=== PATIENT | male | born 1950 | race Caucasian/White ===

== ENCOUNTER → 2020-06-05 | Outpatient (CLI) | payer MEDICARE, OTHER ==
[2020-06-06 11:06] LABS: ABSOLUTE RETIC # 38 10e9/uL (24-90); RETICULOCYTE % 0.93 % (0.50-2.40)
[2020-06-06 11:17] LABS: BAND NEUTROPHILS 0 %; BASOPHILS % (MANUAL) 1 %; EOSINOPHILS % (MANUAL) 2 %; LYMPHOCYTES % (MANUAL) 67 %; MONOCYTES % (MANUAL) 2 %; NEUTROPHILS % (MANUAL) 28 %
[2020-06-06 11:18] LABS: TARGET CELLS SLIGHT
== END ==
LOC: LABNPT 10:50
PROVIDERS: ATTEND Family Medicine
DX: Z01.89 Encounter for other specified special examinations (principal)
CPT/HCPCS: 85007; 85045

== ENCOUNTER 2023-01-16 11:42 | Inpatient (IN) | payer MEDICARE, OTHER ==
[~2023-01-16] VITALS: Ht 165.1 cm; Wt 83.2 kg
--- NOTE | 2023-01-16 12:29 | PM&R Post Admission Assessment ---
PM&R HP Date of Visit: Jan 16, 2023 Time of Visit: 12:30 History of Present Illness Chief complaint: Severe debility following lumbar stenosis with myelopathy spine surgery HPI: This is a 72-year-old male clinic patient of Dr. Cardenas who presents following an extensive lumbar spine surgery due to lumbar stenosis with myelopathy. Patient has had struggles with this for couple years and has become very debilitated and weak. He remains a very high fall risk. Patient did have significant encephalopathy due to pain medication so we will minimize that. We will work on bowel regimen. Vitals remained stable. He will wear a brace at all times. Past Gxghwzy-Ulcqeh-Zmpdbs Hx Past Med/Social Hx: Reviewed Nursing Past Med/Soc Hx, Reviewed and Corrections made Patient Social History Marrital Status: Employed/Student: retired Alcohol Use: Denies Use Smoking Status: Never a Smoker Past Medical History Surgeries: Orthopedic Gastrointestinal: Gastroesophageal Reflux Musculoskeletal: Degenerate Disk Disease, Arthritis, Chronic Back Pain PM&R Allergy/Meds/Data Review Allergies Coded Allergies: No Allergy Information Available (Unverified , 01/16/23) Home Medications Scheduled Bee Pollen (Bee Pollen), 550 MG PO DAILY, (Reported) Gabapentin (Neurontin), 300 MG PO DAILY, (Reported) Phenytoin Sodium Extended (Phenytoin Sodium Extended), 100 MG PO DAILY, (Reported) Scheduled PRN Cyclobenzaprine HCl (Cyclobenzaprine HCl), 10 MG PO TID PRN for MUSCLE SPASMS, (Reported) Oxycodone HCl (Oxycodone HCl), 5 MG PO Q4H PRN for PAIN-SEVERE (8-10), (Reported) Discontinued Medications Gabapentin (Gralise), 300 MG PO DAILY, (Reported) Discontinued Reason: Duplicate Order Current Medications Current Medications Reviewed Review of Systems Constitutional: see HPI, malaise, weakness EENTM: no symptoms reported Respiratory: no symptoms reported Cardiovascular: no symptoms reported Gastrointestinal: constipation Genitourinary: decreased output Musculoskeletal: back pain Skin: see HPI Psychiatric/Neurological: Depressed All Other Systems Reviewed Negative Unless Noted: Yes Physical Exam Physical Exam Vital Signs Capillary Refill : Height, Weight, BMI Height: '" Weight: lbs. oz. kg; BMI Method: General Appearance: No Apparent Distress, WD/WN, Chronically ill Eyes: Bilateral Eye Normal Inspection, Bilateral Eye PERRL HEENT: PERRL/EOMI, Normal ENT Inspection, Pharynx Normal Neck: Full Range of Motion, Normal Inspection, Non Tender, Supple, Carotid Bruit Respiratory: Chest Non Tender, Lungs Clear, Normal Breath Sounds, No Accessory Muscle Use, No Respiratory Distress Cardiovascular: Regular Rate, Rhythm, No Edema, No Gallop, No JVD, No Murmur, Normal Peripheral Pulses Gastrointestinal: Normal Bowel Sounds, No Organomegaly, No Pulsatile Mass, Non Tender, Soft Back: CVA Tenderness (L), CVA Tenderness (R), Decreased Range of Motion, Muscle Spasm, Vertebral Tenderness Extremity: Normal Capillary Refill, Normal Inspection, Normal Range of Motion, Non Tender, No Calf Tenderness, No Pedal Edema Neurologic/Psychiatric: Alert, Oriented x3, No Motor/Sensory Deficits, associate faculty II- XII Norm as Tested, Abnormal Gait, Depressed Affect, Motor Weakness (Bilateral lower extremities 4/5) Skin: Normal Color, Warm/Dry Lymphatic: No Adenopathy PM&R Medical Assessment & Plan REHAB/MEDICAL ASSESSMENT AND PLAN: REHAB IMPAIRMENT GROUP: Lumbar stenosis with myelopathy ETIOLOGIC DIAGNOSIS: Lumbar stenosis with myelopathy The comorbidities that impact the patients function and/or functional outcome by: severe frail status, fall risk, chronic debility REHAB PLAN: The patient is being admitted to our comprehensive inpatient rehabilitation facility and can tolerate the intensity of service consisting of at least: 180 minutes of therapy a day, 5 out of 7 days a week Rehab treatment will consist of: PT OT will work on aggressive rehab in order to regain function with ambulation and increase ADL's in order to return home The patient/family has a good understanding of our discharge process and will benefit from an interdisciplinary inpatient rehabilitation program. The patient has potential to make improvement and is in need of at least two of the following multidisciplinary therapies including but not limited to physical, occupational, speech, and prosthetics and orthotics. Additionally the patient will need services from respiratory, nutritional services, wound care, psychology, etc. (Customize this to each patient). Given the patients complex condition and risk of further medical complications, rehabilitation services cannot be safely or effectively provided at a lower level of care such as a detention facility. BARRIERS TO DISCHARGE: Fall risk ESTIMATED LOS: 7 days DISPOSITION: Home RELEVANT CHANGES SINCE PREADMISSION SCREENING: I have compared the patients medical and functional status at the time of the preadmission screening and there are: no changes PROGNOSIS: Good REHABILITATION GOALS: 1. PT OT will work on aggressive rehab in order to regain function with ambulation and increase ADL's in order to return home All the above goals were reviewed with the patient and he/she is in agreement. By signing this document, I acknowledge that I have personally performed a full physical examination on this patient within 24 hours of admission to this inpatient rehabilitation facility and have determined the patient to be able to tolerate the above course of treatment at an intensive level for a reasonable period of time. I will be completing a detailed individualized Plan of Care for this patient by day #4 of the patients stay based upon the Preadmission Screen, the Post-Admission Evaluation, and the therapy evaluations. Admission Dx/Comorbidities: (1) Myelopathy concurrent with and due to stenosis of lumbar spine ICD Codes: M48.061 - Spinal stenosis, lumbar region without neurogenic claudication; G99.2 - Myelopathy in diseases classified elsewhere (2) S/P lumbar fusion ICD Codes: Z98.1 - Arthrodesis status Assessment/Plan Assessment and Plan Assess & Plan/Chief Complaint Assessment: Myelopathy from lumbar stenosis s/p extensive lumbar spine surgery Post op ileus Fall risk Neuropathy Post op encephalopathy Plan: PT OT Pain control Minimize pain BETSY Copeland DO Jan 16, 2023 12:29
[2023-01-16] MEDS ORDERED: MELATONIN 3 MG TABLET PO PRN (12:30)
[2023-01-16] MEDS ORDERED: ONDANSETRON 4 MG ORAL DISSOLVE TABLET PO PRN (12:30)
[2023-01-16] MEDS ORDERED: DOCUSATE SODIUM 100 MG CAPSULE PO PRN (12:30)
[2023-01-16] MEDS ORDERED: LOPERAMIDE 2 MG CAPSULE PO PRN (12:30)
[2023-01-16] MEDS ORDERED: CALCIUM CARBONATE 500 MG CHEW TABLET PO PRN (12:30)
[2023-01-16] MEDS ORDERED: guaiFENesin/CODEINE 10ML UDC PO PRN (12:30)
[2023-01-16] MEDS ORDERED: ALPRAZolam 0.25 MG TABLET PO PRN (12:30)
[2023-01-16] MEDS ORDERED: Sodium Phosphate/Sodium Biphosphate ADULT enema PR PRN (12:30)
[2023-01-16] MEDS ORDERED: diphenhydrAMINE 25 MG TABLET PO PRN (12:30)
[2023-01-16 13:30] VITALS: BP 101/57
[2023-01-16] MEDS ORDERED: GABA300C PO (13:31)
[2023-01-16] MEDS ORDERED: PHEN100C11 PO (13:31)
[2023-01-16] MEDS ORDERED: BEE550CA PO (13:31)
[2023-01-16] MEDS ORDERED: OXYC5TAB PO (13:31)
[2023-01-16] MEDS ORDERED: GABA300T24 PO (13:31)
[2023-01-16] MEDS ORDERED: CYCL10TA25 PO (13:31)
[2023-01-16] MEDS: ACETAMINOPHEN 325 MG TABLET PO PRN ×2 (13:35→19:47)
--- NOTE | 2023-01-16 13:41 | Occupational Therapy Eval ---
OT Evaluation-General/PLF Medical Diagnosis Admission Date Jan 16, 2023 at 12:25 Medical Diagnosis: s/p L2-S1 Fusion Onset Date: Jan 14, 2023 Therapy Diagnosis Therapy Diagnosis: decreased ADL status, weakness Precautions Comments Back precautions.10-15 lb lifting restriction. Family reports no shower until drain removed. Referral Physician: Beau Referral Reason: Evaluation/Treatment Medical History Additional Medical History OA, seizure disorder, post op LMP and abdominal pain Current History s/p L2-S1 anterior spinal fusion and lami, bone graft and instrumentation. L2- pelvis with b/l open sacroilliac fusion, TLIF. Social History Home: Single Level Current Living Status: Spouse Entry Into Home: Stairs With Railing Steps Into Home: 4 ADL-Prior Level of Function SCALE: Activities may be completed with or without assistive devices. 0-Jfgkygtjrt-ikckgps completes the activity by him/herself with no assistance from a helper. 5-Set-up or Clean-up Assistance-helper sets up or cleans up; patient completes activity. [place] assists only prior to or following the activity. 4-Supervision or Touching Assistance-helper provides verbal cues and/or touching/steadying and/or contact guard assistance as patient completes activity. Assistance may be provided throughout the activity or intermittently. 3-Partial/Moderate Assistance-helper does LESS THAN HALF the effort. [place] lifts, holds or supports trunk or limbs, but provides less than half the effort. 2-Substantial/Maximal Assistance-helper does MORE THAN HALF the effort. [place] lifts or holds trunk or limbs and provides more than half the effort. 8-Kvehtfeip-extxza does ALL the effort. Patient does none of the effort to complete the activity. Or, the assistance of 2 or more helpers is required for the patient to complete the activity. If activity was not attempted, code reason: 7-Patient Refused. 9-Not Applicable-not attempted and the patient did not perform the activity before the current illness, exacerbation or injury. 10-Not Attempted due to Environmental Limitations-(lack of equipment, weather restraints, etc.). 88-Not Attempted due to Medical Conditions or Safety Concerns. ADL PLOF Comments Pt reports IND with all ADLs and functional mobility, no AD. He has a tub/shower combo and has toilet riser with handles. His daughter has ordered a tub/transfer bench. Pt wears R knee brace during day and night due to knee "popping" Self Care: Independent Functional Cognition: Independent DME/Equipment: Tub/Shower, Toilet/Riser DME/Equipment Comments Pt owns a cane, no walker Leisure Interests: [employer] TV, riding horse, reading OT Current Status Subjective Pt agreeable to OT Tx. Pain Numeric Pain Scale: 4 Location Body Site: Back Mental Status/Objective Patient Orientation: Person, Place, Time, Situation Current Glasses/Contacts: Yes Hearing Aids: Yes Dentures/Partials: No Hand Dominance: Right Upper Extremity ROM RUE shoulder flexion to approx 150 degrees, LUE shoulder flexion to approx 90 degrees. difficulty extending elbow and completing shoulder flexion together. Upper Extremity Coordination WFL Upper Extremity Sensation WFL per pt report Upper Extremity Strength LUE decreased, RUE WFL ADL-Treatment Eating (QC): 6 Oral Hygiene (QC): 6 (seated at sink) Shower/Bathe Self (QC): 3 (Assist BLEs lower legs/feet, and assist buttocks for thoroughness) Upper Body Dressing (QC): 4 (SBA, increased time and effort required due to limitations in LUE) Lower Body Dressing (QC): 2 (Pt required assistance threading LEs, able to manage pant hike.) On/Off Footwear (QC): 2 (Pt able to doff slip on shoes, assist with doff/don socks and donning shoes. ) Toileting Hygiene (QC): 3 (Assist with posterior hygiene for thoroughness) Other Treatments OT evaluation complete. Pt and family provided information about PLOF and home set up. Pt participated in UE screen, states he has had difficulties with LUE for many years. Education provided on ARU expectations and process, as well as back precautions, he verbalized understanding. Post tx, pt in recliner, call light in reach and all needs met. Education OT Patient Education: Correct positioning, Energy conservation, Modified ADL techniques, Progress toward Goal/Update tx plan, Purpose of tx/functional activities, Reviewed precautions, Rehab process Teaching Recipient: Patient Teaching Methods: Discussion Response to Teaching: Verbalize Understanding BIMS CAM BIMS Expression of Ideas and Wants: Without Difficulty Understanding Verbal Content: Understands Brief Interview/Mental Status: Yes IRF JESSI BIMS: IRF JESSI BIMS Response (Comments) Value Repitition of Three Words Three 3 Recalls Socks Yes, No Cue Required 2 Recalls Blue No, Could Not Recall 0 Recalls Bed No, Could Not Recall 0 Year Correct 3 Month Accurate Within 5 Days 2 Day Incorrect or No Answer 0 Total [address] Mental [address] No CAM Mental Status Change/Baseline: 0 Inattention: 0 Disorganized thinkin Altered level of consciousness: 0 OT Residential Goals Housekeeper And Laundry Assistant Goals Time Frame: Feb 07, 2023 Eating (QC): 6 Oral Hygiene (QC): 6 Toileting Hygiene (QC): 6 Shower/Bathe Self (QC): 6 Upper Body Dressing (QC): 6 Lower Body Dressing (QC): 6 On/Off Footwear (QC): 6 Additional Goals: 1-Demonstrate ADL Tasks, 2-Verbalize Understanding, 3- ImproveStrength/Luke 1=Demonstrate adherence to instructed precautions during ADL tasks. 2=Patient will verbalize/demonstrate understanding of assistive devices/modifications for ADL. 3=Patient will improve strength/tolerance for activity to enable patient to perform ADL's. OT Education/Plan Problem List/Assessment Assessment: Decreased Activ Tolerance, Decreased UE Strength, Impaired Funct Balance, Impaired I ADL's, Impaired Self-Care Skills Discharge Recommendations Plan/Recommendations: Continue POC Equpiment Recommendations-D/C: Hip Kit Treatment Plan/Plan of Care Patient would benefit from OT for education, treatment and training to promote independence in ADL's, mobility, safety and/or upper extremity function for ADL's. Plan of Care: ADL Retraining, Functional Mobility, Group Exercise/Act as Ind, UE Funct Exercise/Act Treatment Duration: Feb 07, 2023 Frequency: At least 5 of 7 days/Wk (IRF) Estimated Hrs Per Day: 1.5 hours per day Agreement: Yes Rehab Potential: Good Time Start Time: 13:30 Stop Time: 14:00 DATE: Jan 16, 2023 Total Time Billed (hr/min): 30 Billed Treatment Time MooEDDIE ADDISON OT Jan 16, 2023 13:40
--- NOTE | 2023-01-16 14:34 | Physical Therapy Evaluation ---
PT Evaluation-General Medical Diagnosis Admission Date Jan 16, 2023 at 12:25 Medical Diagnosis: s/p L2-S1 Fusion Onset Date: Jan 14, 2023 Therapy Diagnosis Therapy Diagnosis: Decreased functional mobility Precautions Precautions/Isolations: Fall Prevention, Standard Precautions Back precautions. Family reports no shower until drain removed. Weight Bear Status Right Lower Extremity: Right Full Weight Bearing Left Lower Extremity: Left Full Weight Bearing Referral Physician: Beau Reason for Referral: Evaluation/Treatment Medical History Pertinent Medical History: OA Additional Medical History OA, seizure disorder, post op LMP and abdominal pain Current History s/p L2-S1 anterior spinal fusion and lami, bone graft and instrumentation. L2- pelvis with b/l open sacroilliac fusion, TLIF on 01/14/23; Admitted to ARU on 01/16/23 Reviewed History: Yes Social History Home: Single Level Current Living Status: Spouse Entry Into Home: Stairs With Railing (bilateral ), Level Entry PT Steps Into Home: 4 PT Steps Inside Home: 0 Pt lives in a single-level home with his spouse with 4 steps to enter/exit with B HR. Tub shower, SC, no GBs, tall toilet Prior Prior Level of Function SCALE: Activities may be completed with or without assistive devices. 2-Ittxefdkju-toycpzj completes the activity by him/herself with no assistance from a helper. 5-Set-up or Clean-up Assistance-helper sets up or cleans up; patient completes activity. [place] assists only prior to or following the activity. 4-Supervision or Touching Assistance-helper provides verbal cues and/or touching/steadying and/or contact guard assistance as patient completes activity. Assistance may be provided throughout the activity or intermittently. 3-Partial/Moderate Assistance-helper does LESS THAN HALF the effort. [place] lifts, holds or supports trunk or limbs, but provides less than half the effort. 2-Substantial/Maximal Assistance-helper does MORE THAN HALF the effort. [place] lifts or holds trunk or limbs and provides more than half the effort. 5-Zixsjusun-iwztga does ALL the effort. Patient does none of the effort to complete the activity. Or, the assistance of 2 or more helpers is required for the patient to complete the activity. If activity was not attempted, code reason: 7-Patient Refused. 9-Not Applicable-not attempted and the patient did not perform the activity before the current illness, exacerbation or injury. 10-Not Attempted due to Environmental Limitations-(lack of equipment, weather restraints, etc.). 88-Not Attempted due to Medical Conditions or Safety Concerns. Bed Mobility: 6 Transfers (B,C,W/C): 6 Gait: 6 Stairs: 6 Wheelchair Mobility: 9 Indoor Mobility (Ambulation): Independent Stairs: Independent Prior Devices Use: None At OF pt was Mod I with no AD and driving. Pt reports he has a SPC. PT Evaluation-Current Subjective Pt is agreeable to PT eval and treatment Pain Numeric Pain Scale: 5-Moderate Pain Location: Lower Location Body Site: Back Section J - Health Conditions 1. Rarely or not at all 2. Occasionally 3. Frequently 4. Almost constantly 8. Unable to answer Pain Effect on Sleep: 3 Pain Interference with Therapy: 3 Pain Interference w/Day-to-Day: 3 Pt/Family Goals Safely return home Objective Patient Orientation: Person, Place, Time, Situation Attachments: Drains Back brace on when up; R knee brace on at all times ROM/Strength ROM Upper Extremities See OT eval ROM Lower Extremities WFL Strength Upper Extremities See OT eval Strength Lower Extremities B LE MMT = 4-/5 R knee brace Integumentary/Posture Integumentary See nurses note Bowel Incontinence: No Bladder Incontinence: No Sensory Vision: Wears Glasses Hearing: Hearing Aid/Aides (bilatera ) Hand Dominance: Right Sensation Right Upper Extremit: Intact Sensation Left Upper Extremity: Intact Sensation Right Lower Extremit: Intact Sensation Left Lower Extremity: Intact Transfers Roll Left & Right (QC): 4 (SBA ) Sit to Lying (QC): 4 (SBA ) Lying to Sitting/Side of Bed(Q: 4 (SBA ) Sit to Stand (QC): 4 (CGA ) Chair/Ilg-ae-Jascv Xfer(QC): 4 (CGA ) Toilet Transfer (QC): 4 (CGA ) Car Transfer (QC): 4 (CGA ) Gait Does the Patient Walk?: Yes Mode of Locomotion: Walk Anticipated Mode of Locomotion: Walk Walk 10 feet (QC): 4 (CGA ) Walk 50 ft with 2 Turns(QC): 4 (CGA ) Walk 150 ft (QC): 4 (CGA ) Walking 10ft/uneven surface-QC: 4 (CGA ) Distance: 150ft Gait Assistive Device: FWW Wheelchair Training Does the Pt Use a Wheelchair?: No Wheel 50 ft with 2 turns (QC): 9 Wheel 150 ft (QC): 9 Type of Wheelchair: N/A Stairs #of Steps: 4 1 Step (curb) (QC): 3 (Min A ) 4 Steps (QC): 3 (Min A ) 12 Steps (QC): 9 (4 steps at home ) Walking Assistive Device: Walker Balance Sitting Static: Good Sitting Dynamic: Good Standing Static: Fair Standing Dynamic: Fair Picking up an Object (QC): 4 (CGA with senior microsoft net developer ) Special Test Comments KU standing balance scale = 3/5 (goal = 4+/5) Treatment PT eval completed. Co-tx with OT ([id number]), skills of 2 clinicians required to decrease fall risk while working on functional mobility and ADLs. PT working on bed mobility, functional transfers, w/c mobility, walking, and balance/safety. OT focusing on ADLs, UE positioning, mobility, and safety with back precautions. Pt completed bed mobility with SBA and good carry over with abiding by back precautions. Pt completed functional transfers with CGA/SBA. Pt ambulated 150ft x 2 with the FWW and CGA. Pt completed 4 steps with B HR and Min A. Pt completed sponge bath, dressing, and brushing teeth (see OT note for scores). Pt completed w/c mobility x 250ft with SBA. Pt lying supine in bed with call light in reach, all needs met, and spouse present, at the end of treatment session. Pt and spouse deny any questions or concerns. Assessment/Needs Pt tolerated PT well with good effort Rehab Potential: Good Post Rehab Potential-Barriers: Weakness; endruance Equipment Needs FWW PT Chcf Goals Chcf Goals PT Chcf Goals Time Frame: Jan 30, 2023 Roll Left to Right (QC): 6 (Pt will be Mod I with functional mobility with the FWW. ) Sit to Lying (QC): 6 (Pt will be Mod I with functional mobility with the FWW. ) Lying-Sitting on Side/Bed(QC): 6 (Pt will be Mod I with functional mobility with the FWW. ) Sit to Stand (QC): 6 (Pt will be Mod I with functional mobility with the FWW. ) Chair/Pni-pf-Pbnxs Xfer(QC): 6 (Pt will be Mod I with functional mobility with the FWW. ) Toilet/Commode Transfer (QC): 6 (Pt will be Mod I with functional mobility with the FWW. ) Car Transfer (QC): 6 (Pt will be Mod I with functional mobility with the FWW. ) Does the Patient Walk: Yes Walk 10 feet (QC): 6 (Pt will be Mod I with functional mobility with the FWW. ) Walk 10ft-Uneven Surface(QC): 6 (Pt will be Mod I with functional mobility with the FWW. ) Walk 50ft with 2 Turns (QC): 6 (Pt will be Mod I with functional mobility with the FWW. ) Walk 150 ft (QC): 6 (Pt will be Mod I with functional mobility with the FWW. ) Wheel 50 feet with 2 turns (QC: 6 (Mod I with w/c mobility/will not need ) Type: Manual Wheel 150 feet: 6 (Mod I with w/c mobility/will not need ) Type: Manual 1 Step (curb) (QC): 6 (Pt will be Mod I with functional mobility with the FWW. ) 4 Steps (QC): 6 (Pt will be Mod I with functional mobility with the FWW. ) 12 Steps (QC): 9 (4 steps at home ) Picking up an Object (QC): 6 (Pt will be Mod I with functional mobility with the FWW. ) KU standing balance scale goal = 4+/5 PT Plan Problem List Problem List: Activity Tolerance, Functional Strength, Safety, Balance, Gait, Transfer, Bed Mobility, ROM Treatment/Plan Treatment Plan: Continue Plan of Care Treatment Plan: Bed Mobility, Concurrent Therapy, Education, Functional Activity Luke, Functional Strength, Group Therapy, Gait, Safety, Therapeutic Exercise, Transfers Treatment Duration: Jan 30, 2023 Frequency: At least 5 of 7 days/Wk (IRF) Estimated Hrs Per Day: 1.5 hours per day Patient and/or Family Agrees t: Yes Safety Risks/Education Patient Education: Gait Training, Transfer Techniques, Steps, Reviewed Precautions, Correct Positioning, W/C Management, Safety Issues Teaching Recipient: Patient Teaching Methods: Demonstration, Discussion Response to Teaching: Verbalize Understanding, Return Demonstration, Reinforcement Needed Discharge Recommendations Therapy Discharge Recommendati: Home & Family Equpiment Recommendations-D/C: Front Wheeled Walker, Shower Chair Discharge Status/Home Program Cont per POC Barriers to Progress Weakness, pain Target Placement Home with spouse Time Time In: 1420 Time Out: 1550 DATE: Jan 16, 2023 Total Billed Treatment Time: 90 Total Billed Treatment 90 min total PT eval from [id number] = 30 min EVM co-tx from [id number] for 60 min 1 visit FA x 4 ROSAURA TELLEZ PT Jan 16, 2023 14:34
--- NOTE | 2023-01-16 16:39 | Occupational Ther Daily Note ---
OT Current Status-Daily Note Subjective Pt agreeable to OT/PT cotreatment. ADL-Treatment Therapy Code Descriptions/Definitions Functional [place] Measure: 0=Not Assessed/NA 4=Minimal Assistance 1=Total Assistance 5=Supervision or Setup 2=Maximal Assistance 6=Modified [place] 3=Moderate Assistance 7=Complete IndependenceSCALE: Activities may be completed with or without assistive devices. 7-Xsnmetcwpq-vawqznw completes the activity by him/herself with no assistance from a helper. 5-Set-up or Clean-up Assistance-helper sets up or cleans up; patient completes activity. [place] assists only prior to or following the activity. 4-Supervision or Touching Assistance-helper provides verbal cues and/or touching/steadying and/or contact guard assistance as patient completes activity. Assistance may be provided throughout the activity or intermittently. 3-Partial/Moderate Assistance-helper does LESS THAN HALF the effort. [place] lifts, holds or supports trunk or limbs, but provides less than half the effort. 2-Substantial/Maximal Assistance-helper does MORE THAN HALF the effort. [place] lifts or holds trunk or limbs and provides more than half the effort. 5-Wiyupltnm-wuyevz does ALL the effort. Patient does none of the effort to complete the activity. Or, the assistance of 2 or more helpers is required for the patient to complete the activity. If activity was not attempted, code reason: 7-Patient Refused. 9-Not Applicable-not attempted and the patient did not perform the activity before the current illness, exacerbation or injury. 10-Not Attempted due to Environmental Limitations-(lack of equipment, weather restraints, etc.). 88-Not Attempted due to Medical Conditions or Safety Concerns. Other Treatment OT/PT cotreat due to skill of 2 clinicians required which a vision rehabilitation therapist could not perform in order to coordinate UE/LEs, decrease fall risk, and due to pt's limitations in strength, activity tolerance, mobility and transfers. OT focused on UE placement, ADLs and cues for sequencing and safety, PT focused on LE placement, gross overall movement, transfers and mobility. Pt returned to his r oom using FWW, transferring to seat at sink. Pt completed sponge bath (assist BLEs lower legs/feet and buttocks), LE dressing (Assist threading BLEs, pt able to perform pant hike), UE dressing (SBA), oral care (IND seated). Pt then performed w/c mobility around ARU common area and back to room in order to increase activity tolerance and UE/LE strengthening, 250' SBA. CGA-SBA with tj corrales. Pt used FWW to transfer to bed. Post tx, pt in bed, call light in reach and all needs met. Education OT Patient Education: Correct positioning, Energy conservation, Modified ADL techniques, Progress toward Goal/Update tx plan, Purpose of tx/functional activities, Rehab process Teaching Recipient: Patient Teaching Methods: Discussion Response to Teaching: Verbalize Understanding OT Cut Order Hand Goals [facility] Living Goals Time Frame: Feb 07, 2023 Acute change in mental status: 0 Inattention: 0 Disorganized thinkin Altered level of consciousness: 0 Eating (QC): 6 Oral Hygiene (QC): 6 Toileting Hygiene (QC): 6 Shower/Bathe Self (QC): 6 Upper Body Dressing (QC): 6 Lower Body Dressing (QC): 6 On/Off Footwear (QC): 6 Additional Goals: 1-Demonstrate ADL Tasks, 2-Verbalize Understanding, 3- ImproveStrength/Luke 1=Demonstrate adherence to instructed precautions during ADL tasks. 2=Patient will verbalize/demonstrate understanding of assistive devices/modifications for ADL. 3=Patient will improve strength/tolerance for activity to enable patient to perform ADL's. OT Education/Plan Problem List/Assessment Assessment: Decreased Activ Tolerance, Decreased UE Strength, Impaired Funct Balance, Impaired I ADL's, Impaired Self-Care Skills Discharge Recommendations Plan/Recommendations: Continue POC Treatment Plan/Plan of Care Patient would benefit from OT for education, treatment and training to promote independence in ADL's, mobility, safety and/or upper extremity function for ADL's. Plan of Care: ADL Retraining, Functional Mobility, Group Exercise/Act as Ind, UE Funct Exercise/Act Treatment Duration: Feb 07, 2023 Frequency: At least 5 of 7 days/Wk (IRF) Estimated Hrs Per Day: 1.5 hours per day Agreement: Yes Rehab Potential: Good Time Start Time: 14:50 Stop Time: 15:50 DATE: Jan 16, 2023 Total Time Billed (hr/min): 60 Billed Treatment Time cotreat x60' 1, ADL 3 (45'), FA (15') ISAURA MCDONALD OT Jan 16, 2023 16:38
[2023-01-16] MEDS ORDERED: RX-CYCLOBENZAPRINE 10 MG (FLEXERIL) TAB PPK#3 PO PRN (19:00)
[2023-01-16 19:08] VITALS: BP 116/56
[2023-01-16] MEDS: SENNA W/DOCUSATE TABLET PO SCH (19:47)
[2023-01-16] MEDS: DOCUSATE SODIUM 100 MG CAPSULE PO SCH (19:48)
[2023-01-17] MEDS: oxyCODONE IMMEDIATE RELEASE 5 MG TABLET PO PRN ×3 (01:53→14:36)
[2023-01-17 05:19] LABS: BASOPHILS % (AUTO) 0 % (0-10); EOSINOPHILS # (AUTO) 0.1 10^3/uL (0.0-0.3); EOSINOPHILS % (AUTO) 1 % (0-10); HEMATOCRIT 22 % (40-54); HEMOGLOBIN 7.4 g/dL (13.3-17.7); LYMPHOCYTES # (AUTO) 4.7 10^3/uL (1.0-4.0); LYMPHOCYTES % (AUTO) 47 % (12-44); MEAN CORPUSCULAR HEMOGLOBIN 33 pg (25-34); MEAN CORPUSCULAR HGB CONC 34 g/dL (32-36); MEAN CORPUSCULAR VOLUME 97 fL (80-99); MEAN PLATELET VOLUME 12.4 fL (9.0-12.2); MONOCYTES # (AUTO) 0.6 10^3/uL (0.0-1.0); MONOCYTES % (AUTO) 6 % (0-12); NEUTROPHILS # (AUTO) 4.6 10^3/uL (1.8-7.8); NEUTROPHILS % (AUTO) 46 % (42-75); PLATELET COUNT 78 10^3/uL (130-400)
--- NOTE | 2023-01-17 05:23 | Individualized Plan of Care ---
Individualized Plan of Care Rehab Nursing IPOC Order Admission Date Jan 16, 2023 at 12:25 Current Orders Orders Admission Order(Inpt,Obs,Sdc) (01/16/23 12:25) Vital Signs: Per Unit Policy ( 08,16,00 (01/16/23 12:25) Sampson Hairston 09,21 (01/16/23 12:25) Sequential Compression Device [id number] (01/16/23 12:25) Jewelry Cutter-Inpt Rehab Con (01/16/23 12:25) Rehab Nursing Orders-Ipoc (01/16/23 12:25) Physical Therapy Rehab Orders (01/16/23 12:25) Occupational Therapy Rehab Ord (01/16/23 12:25) Speech Therapy Rehab Orders (01/16/23 12:25) Cbc With Automated Diff (01/17/23 06:00) Comprehensive Metabolic Panel (01/17/23 06:00) Precautions (Aru) (01/16/23 12:25) Weekly Weight WEEK (01/16/23 12:25) Rehab-Intensity Of Therapy (01/16/23 12:25) Initiate Admission Nursing Pro .admission (01/16/23 12:25) Alprazolam Tablet (Alprazolam Tablet) (01/16/23 12:30) Calcium Carbonate Chew Tablet (Calcium C (01/16/23 12:30) Diphenhydramine Tablet (Diphenhydramine (01/16/23 12:30) Docusate Sodium Capsule (Docusate Sodium (01/16/23 21:00) Docusate Sodium Capsule (Docusate Sodium (01/16/23 12:30) Bisacodyl Suppository (Bisacodyl Supposi (01/16/23 12:30) Lactulose Oral Solution (Enulose Oral So (01/16/23 12:30) Na Phos/Na Biphos Adult Enema (Na Phos/N (01/16/23 12:30) Guaifenesin/Codeine Syrup (Guaifenesin/C (01/16/23 12:30) Loperamide Capsule (Loperamide Capsule) (01/16/23 12:30) Melatonin Tablet (Melatonin Tablet) (01/16/23 12:30) Polyethylene Glycol Powder Pkt (Miralax (01/16/23 21:00) Ondansetron Oral Dissolve Tab (Ondanset (01/16/23 12:30) Senna S Tablet (Senokot S Tablet) (01/16/23 21:00) Acetaminophen Tablet (Acetaminophen Ta (01/16/23 12:30) Initiate Admission Nursing Pro .admission (01/16/23 12:25) Code/Resuscitation (01/16/23 12:25) Admission Arrival Bed Request (01/16/23 12:28) General/Regular (01/16/23 Lunch) Incentive Spirometry Initial (01/16/23 16:33) Incentive Spirometry (Nursing) Q2H (01/16/23 16:33) Patient Visit (01/16/23 ) Pt Eval Moderate Complexity (01/16/23 ) Patient Visit (01/16/23 ) Functional Activities, Ea 15 (01/16/23 ) Rx-Cyclobenzaprine Tablet (Rx-Flexeril T (01/16/23 19:00) Gabapentin Capsule (Gabapentin Capsule) (01/17/23 09:00) Oxycodone Immediate Rel Tablet (Oxycodon (01/16/23 19:00) Phenytoin Ext Release Capsule (Phenytoin (01/17/23 09:00) (Nf) Bee Pollen (01/17/23 09:00) Cyclobenzaprine Tablet (Cyclobenzaprine (01/16/23 19:15) Phenytoin Ext Release Capsule (Phenytoin (01/17/23 09:30) Phenytoin Ext Release Capsule (Phenytoin (01/18/23 09:00) Nursing Communication (Order) (01/17/23 10:17) Drain: Instructions (Order) (01/17/23 10:18) Iron Test (Fe) (01/17/23 10:51) Vitamin B 12 (01/17/23 10:51) Cyanocobalamin Injection (Cyanocobalamin (01/17/23 11:30) Cyanocobalamin Tablet (Cyanocobalamin Ta (01/18/23 07:00) Iron Sucrose Injection (Iron Sucrose Inj (01/17/23 11:15) Iv [place]-Insert (Order) (01/17/23 11:08) Patient Visit (01/17/23 ) Gait Training, Ea 15 Min (01/17/23 ) Functional Activities, Ea 15 (01/17/23 ) Exercise Therap, Ea 15 Min (01/17/23 ) Patient Visit (01/17/23 ) Exercise Therap, Ea 15 Min (01/17/23 ) Gait Training, Ea 15 Min (01/17/23 ) Rehab Nursing Orders: Ongoing Assess. of Cognitive Status, Ongoing Assess. of Function Status, Bladder Management, Bladder Scan, Bladder Training, Bowel Management, Bowel Training, Disease Management & Educaiton, DVT Prophylaxis, Fall Prevention, Fluid/Electrolyte/Nutrition Mgmt, Infection Prevention, Medication Management & Education, Management of Risks & Complications, Management of Skin Intergrity, Nutrition Management, Pain Management, Patie nt/Family Support, Safety Management, Weight Bearing Precaution, Wound Management Intensity of Therapy to be met Patient to be seen: Min.3h per day/5 of 7d PT IPOC Problem List: Activity Tolerance, Functional Strength, Safety, Balance, Gait, Transfer, Bed Mobility, ROM Treatment Plan: Continue Plan of Care Bed Mobility, Concurrent Therapy, Education, Functional Activity Luke, Functional Strength, Group Therapy, Gait, Safety, Therapeutic Exercise, Transfers Treatment Duration: Jan 30, 2023 Frequency: At least 5 of 7 days/Wk (IRF) Estimated Hrs Per Day: 1.5 hours per day OT IPOC Problems: Decreased Activ Tolerance, Decreased UE Strength, Impaired Funct Balance, Impaired I ADL's, Impaired Self-Care Skills OT Treatment, Training and Edu: Yes Plan of Care: ADL Retraining, Functional Mobility, Group Exercise/Act as Ind, UE Funct Exercise/Act Treatment Duration: Feb 07, 2023 Frequency: At least 5 of 7 days/Wk (IRF) Estimated Hrs Per Day: 1.[address] IPOC Speech Therapy Treatment Plan: Discontinue ST Treatment Duration: Jan 17, 2023 Frequency: Modified Program (IRF) Estimated Hrs Per Day: Other Jewelry Cutter/Case Mgmt Jewelry Cutter/Case Managemen: Discharge Planning Dietitian/Waiver Analyst Dietitian/Waiver Analyst to monitor nutritional status and make changes and/or recommendations as needed and work with speech pathology on dietary upgrades as the occur. Physician IPOC Medical Issues being managed closely and that require the 24 hour availability of a physician: Recent complicated lumbar spine surgery with slow recovery and postop pain with encephalopathy from pain medication and current severe anemia with significant debility and frail status will be high risk for decompensation Medical Issues: Bowel/Bladder Function, DVT Prophylaxis, Falls Precautions, Fluid/Electrolyte/Nutrition Balance, Infection Protection, Pain Management, Wound Care Brief Synthesis of Preadmission Screen, Post-Admission Evaluation, and Therapy Evaluations: PT and OT will focus on regaining function with use of assistive devices while preventing falls and increasing independence in ADLs in order to return home with Medical Prognosis: good Anticipated Length of Stay: 7 days BETSY PEREZ DO Jan 17, 2023 05:23
--- NOTE | 2023-01-17 05:23 | PM&R Progress Note ---
Subjective HPI/CC On Admission Date Seen by Provider: Jan 17, 2023 Time Seen by Provider: 13:00 Subjective/Events-last exam 01/17/2023: Patient dramatically improved Slow recovery Noted hemoglobin so we will empirically place on iron and B12 supplement both Updated on results Patient has struggled for a couple years due to the severity of his spine disease Review of Systems General: Fatigue, Malaise Objective Exam Vital Signs Vital Signs Date Time Temp Pulse Resp B/P (MAP) Pulse Ox O2 Delivery O2 Flow Rate FiO2 01/17/23 09:10 Room Air 01/17/23 08:00 37.2 75 16 131/78 (95) 93 Capillary Refill : General Appearance: No Apparent Distress, WD/WN, Chronically ill HEENT: PERRL/EOMI, Normal ENT Inspection, Pharynx Normal Neck: Full Range of Motion, Normal Inspection, Non Tender, Supple, Carotid Bruit Respiratory: Chest Non Tender, Lungs Clear, Normal Breath Sounds, No Accessory Muscle Use, No Respiratory Distress Cardiovascular: Regular Rate, Rhythm, No Edema, No Gallop, No JVD, No Murmur, Normal Peripheral Pulses Gastrointestinal: Normal Bowel Sounds, No Organomegaly, No Pulsatile Mass, Non Tender, Soft Back: CVA Tenderness (L), CVA Tenderness (R), Decreased Range of Motion, Muscle Spasm, Vertebral Tenderness Extremity: Normal Capillary Refill, Normal Inspection, Normal Range of Motion, Non Tender, No Calf Tenderness, No Pedal Edema Neurologic/Psychiatric: Alert, Oriented x3, No Motor/Sensory Deficits, product safety technical assistant II- XII Norm as Tested, Abnormal Gait, Depressed Affect, Motor Weakness (Bilateral lower extremities 4/5) Skin: Normal Color, Warm/Dry Lymphatic: No Adenopathy Results/Procedures Lab Laboratory Tests 01/17/23 05:04 Patient resulted labs reviewed. FIM Transfers Therapy Code Descriptions/Definitions Functional [place] Measure: 0=Not Assessed/NA 4=Minimal Assistance 1=Total Assistance 5=Supervision or Setup 2=Maximal Assistance 6=Modified [place] 3=Moderate Assistance 7=Complete IndependenceSCALE: Activities may be completed with or without assistive devices. 2-Vdxoiabsbo-szzackx completes the activity by him/herself with no assistance from a helper. 5-Set-up or Clean-up Assistance-helper sets up or cleans up; patient completes activity. [place] assists only prior to or following the activity. 4-Supervision or Touching Assistance-helper provides verbal cues and/or touching/steadying and/or contact guard assistance as patient completes act ivity. Assistance may be provided throughout the activity or intermittently. 3-Partial/Moderate Assistance-helper does LESS THAN HALF the effort. [place] lifts, holds or supports trunk or limbs, but provides less than half the effort. 2-Substantial/Maximal Assistance-helper does MORE THAN HALF the effort. [place] lifts or holds trunk or limbs and provides more than half the effort. 7-Djwwlkndx-dpxnlw does ALL the effort. Patient does none of the effort to complete the activity. Or, the assistance of 2 or more helpers is required for the patient to complete the activity. If activity was not attempted, code reason: 7-Patient Refused. 9-Not Applicable-not attempted and the patient did not perform the activity before the current illness, exacerbation or injury. 10-Not Attempted due to Environmental Limitations-(lack of equipment, weather restraints, etc.). 88-Not Attempted due to Medical Conditions or Safety Concerns. Roll Left to Right (QC): 4 (SBA ) Sit to Lying (QC): 4 (SBA ) Sit to Stand (QC): 4 (CGA ) Chair/Dod-fa-Tunql Xfer(QC): 4 (CGA ) Car Transfer (QC): 4 (CGA ) Gait Training Does the Patient Walk?: Yes Walk 10 feet (QC): 4 (CGA ) Walk 50 ft with 2 Turns(QC): 4 (CGA ) Walk 150 ft (QC): 4 (CGA ) Walking 10ft/uneven surface-QC: 4 (CGA ) Gait Assistive Device: FWW Wheelchair Training Does the Pt Use a Wheelchair?: No Wheel 50 ft with 2 turns (QC): 9 Wheel 150 ft (QC): 9 Type of Wheelchair: N/A Stair Training #of Steps: 4 1 Step (curb) (QC): 3 (Min A ) 4 Steps (QC): 3 (Min A ) 12 Steps (QC): 9 (4 steps at home ) Balance Picking up an Object (QC): 4 (CGA with game advisor ) ADL-Treatment Eating (QC): 6 Oral Hygiene (QC): 6 (seated at sink) Shower/Bathe Self (QC): 3 (Assist BLEs lower legs/feet, and assist buttocks for thoroughness) Upper Body Dressing (QC): 4 (SBA, increased time and effort required due to limitations in LUE) Lower Body Dressing (QC): 2 (Pt required assistance threading LEs, able to manage pant hike.) On/Off Footwear (QC): 2 (Pt able to doff slip on shoes, assist with doff/don socks and donning shoes. 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 Plan: PT OT Pain control Minimize pain meds 01/17/2023: Supportive care Monitor closely (1) Myelopathy concurrent with and due to stenosis of lumbar spine (2) S/P lumbar fusion BETSY PEREZ DO Jan 17, 2023 05:23
[2023-01-17 05:34] LABS: ALBUMIN 2.9 GM/DL (3.2-4.5)
[2023-01-17 05:35] LABS: POTASSIUM 4.4 MMOL/L (3.6-5.0)
[2023-01-17 05:39] LABS: BILIRUBIN,TOTAL 0.4 MG/DL (0.1-1.0)
[2023-01-17 05:41] LABS: CREATININE SERUM 0.99 MG/DL (0.60-1.30)
[2023-01-17 08:00] VITALS: BP 131/78
[2023-01-17] MEDS: GABAPENTIN 300 MG CAPSULE PO SCH (08:04)
[2023-01-17] MEDS: DOCUSATE SODIUM 100 MG CAPSULE PO SCH ×2 (08:04→21:31)
[2023-01-17] MEDS: SENNA W/DOCUSATE TABLET PO SCH ×2 (08:05→21:31)
[2023-01-17] MEDS: LACTULOSE SYRUP 10GM/15ML 30ML UDC PO PRN (08:11)
[2023-01-17] MEDS ORDERED: BEE POLLEN 550 MG PO SCH (09:00)
[2023-01-17] MEDS ORDERED: PHENYTOIN EXT RELEASE 100 MG CAPSULE PO SCH (09:00)
[2023-01-17] MEDS: ACETAMINOPHEN 325 MG TABLET PO PRN ×2 (09:23→18:16)
[2023-01-17] MEDS ORDERED: PHENYTOIN EXT RELEASE 100 MG CAPSULE PO NR (09:30)
--- NOTE | 2023-01-17 10:12 | Occupational Ther Daily Note ---
OT Current Status-Daily Note Subjective Pt agreeable to OT Tx, states he did not get sleep last night. Pt's states pt would like to shower if possible, pt's RN called surgeon's office and confirmed pt is NOT to shower until after drain is removed. Pt and verbalize understanding. Mental Status/Objective Patient Orientation: Person, Place, Time, Situation ADL-Treatment Therapy Code Descriptions/Definitions Functional [place] Measure: 0=Not Assessed/NA 4=Minimal Assistance 1=Total Assistance 5=Supervision or Setup 2=Maximal Assistance 6=Modified [place] 3=Moderate Assistance 7=Complete IndependenceSCALE: Activities may be completed with or without assistive devices. 6-Ckcwwxuudb-xrhjkvz completes the activity by him/herself with no assistance from a helper. 5-Set-up or Clean-up Assistance-helper sets up or cleans up; patient completes activity. [place] assists only prior to or following the activity. 4-Supervision or Touching Assistance-helper provides verbal cues and/or touching/steadying and/or contact guard assistance as patient completes activity. Assistance may be provided throughout the activity or intermittently. 3-Partial/Moderate Assistance-helper does LESS THAN HALF the effort. [place] lifts, holds or supports trunk or limbs, but provides less than half the effort. 2-Substantial/Maximal Assistance-helper does MORE THAN HALF the effort. [place] lifts or holds trunk or limbs and provides more than half the effort. 4-Kgihwzzuu-hhuguw does ALL the effort. Patient does none of the effort to complete the activity. Or, the assistance of 2 or more helpers is required for the patient to complete the activity. If activity was not attempted, code reason: 7-Patient Refused. 9-Not Applicable-not attempted and the patient did not perform the activity before the current illness, exacerbation or injury. 10-Not Attempted due to Environmental Limitations-(lack of equipment, weather restraints, etc.). 88-Not Attempted due to Medical Conditions or Safety Concerns. Oral Hygiene (QC): 6 Shower/Bathe Self (QC): 3 (Min A with buttocks for thoroughness) Upper Body Dressing (QC): 4 (SBA, VCs for technique due to decreased shoulder m ovement) Lower Body Dressing (QC): 3 ( Min A with AE.) Other Treatment Pt in recliner, sit to stand from recliner with SBA, then SBA transfer into bathroom using FWW. Pt sat at sink to complete sponge bath and dressing. OT educated pt on AE for LE dressing and long handled sponge for washing LEs. Pt demo'd understanding of each, requiring min A overall using industrial hygiene technician to don/doff pants and underwear. Pt had some difficulty doffing pullman conductor shirt, OT educated pt on adaptive technique to trial in future, he verbalized understanding. Pt able to don button up shirt and back brace with SBA. Pt completed grooming tasks seated at sink independently. OT assisted pt with donning socks due to time constraint, thus no QC score provided this tx, pt demo'd ability to doff with industrial hygiene technician. Plan to educate pt on sock aide and toilet tongs next tx to increase independence with ADLS. Pt stood from chair, SBA and returned to recliner using FWW, SBA. Post tx, pt in recliner, call light in reach and all needs met. Education OT Patient Education: Correct positioning, Energy conservation, Modified ADL techniques, Progress toward Goal/Update tx plan, Purpose of tx/functional activities, Rehab process Teaching Recipient: Patient Teaching Methods: Discussion Response to Teaching: Verbalize Understanding OT Jail Goals Jail Goals Time Frame: Feb 07, 2023 Acute change in mental status: 0 Inattention: 0 Disorganized thinkin Altered level of consciousness: 0 Eating (QC): 6 Oral Hygiene (QC): 6 Toileting Hygiene (QC): 6 Shower/Bathe Self (QC): 6 Upper Body Dressing (QC): 6 Lower Body Dressing (QC): 6 On/Off Footwear (QC): 6 Additional Goals: 1-Demonstrate ADL Tasks, 2-Verbalize Understanding, 3-ImproveStrength/Luke 1=Demonstrate adherence to instructed precautions during ADL tasks. 2=Patient will verbalize/demonstrate understanding of assistive devices/modifications for ADL. 3=Patient will improve strength/tolerance for activity to enable patient to perform ADL's. OT Education/Plan Problem List/Assessment Assessment: Decreased Activ Tolerance, Decreased UE Strength, Impaired Funct Balance, Impaired I ADL's, Impaired Self-Care Skills, Restricted Funct UE ROM Discharge Recommendations Plan/Recommendations: Continue POC Treatment Plan/Plan of Care Patient would benefit from OT for education, treatment and training to promote independence in ADL's, mobility, safety and/or upper extremity function for ADL's. Plan of Care: ADL Retraining, Functional Mobility, Group Exercise/Act as Ind, UE Funct Exercise/Act Treatment Duration: Feb 07, 2023 Frequency: At least 5 of 7 days/Wk (IRF) Estimated Hrs Per Day: 1.5 hours per day Agreement: Yes Rehab Potential: Good Time Start Time: 08:50 Stop Time: 10:00 DATE: Jan 17, 2023 Total Time Billed (hr/min): 70 Billed Treatment Time 1, ADL 5 ISAURA MCDONALD OT Jan 17, 2023 10:12
[2023-01-17] MEDS ORDERED: CYANOCOBALAMIN 1000 MCG/ML 1 ML VIAL IM NR (11:30)
--- NOTE | 2023-01-17 11:42 | Occupational Ther Daily Note ---
OT Current Status-Daily Note Subjective Pt in recliner, agreeable to OT tx. ADL-Treatment Therapy Code Descriptions/Definitions Functional [place] Measure: 0=Not Assessed/NA 4=Minimal Assistance 1=Total Assistance 5=Supervision or Setup 2=Maximal Assistance 6=Modified [place] 3=Moderate Assistance 7=Complete IndependenceSCALE: Activities may be completed with or without assistive devices. 1-Bvayvetima-smqpluw completes the activity by him/herself with no assistance from a helper. 5-Set-up or Clean-up Assistance-helper sets up or cleans up; patient completes activity. [place] assists only prior to or following the activity. 4-Supervision or Touching Assistance-helper provides verbal cues and/or touching/steadying and/or contact guard assistance as patient completes activity. Assistance may be provided throughout the activity or intermittently. 3-Partial/Moderate Assistance-helper does LESS THAN HALF the effort. [place] lifts, holds or supports trunk or limbs, but provides less than half the effort. 2-Substantial/Maximal Assistance-helper does MORE THAN HALF the effort. [place] lifts or holds trunk or limbs and provides more than half the effort. 4-Wdgqaumow-qndunk does ALL the effort. Patient does none of the effort to compl ete the activity. Or, the assistance of 2 or more helpers is required for the patient to complete the activity. If activity was not attempted, code reason: 7-Patient Refused. 9-Not Applicable-not attempted and the patient did not perform the activity before the current illness, exacerbation or injury. 10-Not Attempted due to Environmental Limitations-(lack of equipment, weather restraints, etc.). 88-Not Attempted due to Medical Conditions or Safety Concerns. On/Off Footwear: 3 (Pt able to doff socks using manager supply chain, SBA. Min A with donning using sock aide.) Toileting Hygiene (QC): 4 (SBA. Pt able to demonstrate posterior hygiene using toilet toings. ) Other Treatment Pt up in recliner, agreeable to OT Tx. Pt educated on manager supply chain and sock aide. Pt able to doff socks using manager supply chain with SBA. Pt donned gripper socks using sock aide, min A. Pt used FWW to transfer into bathroom and onto toilet, SBA. Pt educated on toilet tongs for posterior hygiene, he verbalized understanding and trialed tongs stating he believes they will increase his independence. Pt completed hand hygiene standing at sink, SBA, then returned to recliner using FWW, SBA. Post tx, pt in recliner, call light in reach and all needs met. Education OT Patient Education: Correct positioning, Energy conservation, Modified ADL t echniques, Progress toward Goal/Update tx plan, Purpose of tx/functional activities, Rehab process, Safety issues, Use of adapted equipment Teaching Recipient: Patient Teaching Methods: Discussion Response to Teaching: Verbalize Understanding OT Snf Goals Snf Goals Time Frame: Feb 07, 2023 Acute change in mental status: 0 Inattention: 0 Disorganized thinkin Altered level of consciousness: 0 Eating (QC): 6 Oral Hygiene (QC): 6 Toileting Hygiene (QC): 6 Shower/Bathe Self (QC): 6 Upper Body Dressing (QC): 6 Lower Body Dressing (QC): 6 On/Off Footwear (QC): 6 Additional Goals: 1-Demonstrate ADL Tasks, 2-Verbalize Understanding, 3- ImproveStrength/Luke 1=Demonstrate adherence to instructed precautions during ADL tasks. 2=Patient will verbalize/demonstrate understanding of assistive devices/modifications for ADL. 3=Patient will improve strength/tolerance for activity to enable patient to perform ADL's. OT Education/Plan Problem List/Assessment Assessment: Decreased Activ Tolerance, Decreased UE Strength, Impaired Funct Balance, Impaired I ADL's, Impaired Self-Care Skills Discharge Recommendations Plan/Recommendations: Continue POC Treatment Plan/Plan of Care Patient would benefit from OT for education, treatment and training to promote independence in ADL's, mobility, safety and/or upper extremity function for ADL's. Plan of Care: ADL Retraining, Functional Mobility, Group Exercise/Act as Ind, UE Funct Exercise/Act Treatment Duration: Feb 07, 2023 Frequency: At least 5 of 7 days/Wk (IRF) Estimated Hrs Per Day: 1.5 hours per day Agreement: Yes Rehab Potential: Good Time Start Time: 11:10 Stop Time: 11:30 DATE: Jan 17, 2023 Total Time Billed (hr/min): 20 Billed Treatment Time 1, ADL ISAURA MCDONALD OT Jan 17, 2023 11:42
[2023-01-17] MEDS: IRON SUCROSE 200 MG/10 ML VIAL IV SCH (14:22)
--- NOTE | 2023-01-17 14:43 | Physical Therapy Daily Note ---
PT Daily Note-Current Subjective Pt found seated in recliner upon entry. Agreed to PT. Reports that his back is feeling pretty stiff this AM. Pain Section J - Health Conditions 1. Rarely or not at all 2. Occasionally 3. Frequently 4. Almost constantly 8. Unable to answer Pain Effect on Sleep: 3 Pain Interference with Therapy: 3 Pain Interference w/Day-to-Day: 3 Mental Status Patient Orientation: Person, Place Transfers SCALE: Activities may be completed with or without assistive devices. 1-Unxzkisbec-fwcjjzs completes the activity by him/herself with no assistance from a helper. 5-Set-up or Clean-up Assistance-helper sets up or cleans up; patient completes activity. [place] assists only prior to or following the activity. 4-Supervision or Touching Assistance-helper provides verbal cues and/or touching/steadying and/or contact guard assistance as patient completes activity. Assistance may be provided throughout the activity or intermittently. 3-Partial/Moderate Assistance-helper does LESS THAN HALF the effort. [place] lifts, holds or supports trunk or limbs, but provides less than half the effort. 2-Substantial/Maximal Assistance-helper does MORE THAN HALF the effort. [place] lifts or holds trunk or limbs and provides more than half the effort. 0-Qjwhcviez-nikalf does ALL the effort. Patient does none of the effort to complete the activity. Or, the assistance of 2 or more helpers is required for the patient to complete the activity. If activity was not attempted, code reason: 7-Patient Refused. 9-Not Applicable-not attempted and the patient did not perform the activity before the current illness, exacerbation or injury. 10-Not Attempted due to Environmental Limitations-(lack of equipment, weather restraints, etc.). 88-Not Attempted due to Medical Conditions or Safety Concerns. Sit to Stand (QC): 4 Pt performs sit to stand transfer /c SBA for safety due to balance deficits. Completes sit to stand transfer 10x from chair. Weight Bearing Right Lower Extremity: Right Full Weight Bearing Left Lower Extremity: Left Full Weight Bearing Gait Training Does the Patient Walk?: Yes Distance: 150 feet x 2 Walk 10 feet (QC): 4 Walk 50 ft with 2 Turns(QC): 4 Walk 150 ft (QC): 4 Gait Persons Needed: 1 Gait Assistive Device: FWW Pt ambulates /c use of FWW and required CGA for safety due to balance deficits. Pt displays good step lengths and balance /c slightly forward flexed trunk posture while ambulating. Pt ambulated 150 feet x 2 /c no loss of balance. Required a short seated rest break to complete. Treatments Seated Therapeutic Exercises (B) x 15 ea: - LAQs - TA sets 3-ways - Hip abd /c RTB - Hip add - Marching /c RTB - Hamstring curls /c RTB - Heel/toe raises Assessment Current Status: Good Progress Pt displays good muscle strength and endurance throughout visit. Required occasional seated rest breaks while performing interventions likely due to reported back stiffness. Pt able to ambulate up to 150 feet /c use of FWW before requiring a seated rest break. Continue to progress pt as tolerated per POC. PT [employer] Medic Goals Detention Goals PT [employer] Medic Goals Time Frame: Jan 30, 2023 Roll Left & Right (QC): 6 (Pt will be Mod I with functional mobility with the FWW. ) Sit to Lying (QC): 6 (Pt will be Mod I with functional mobility with the FWW. ) Lying-Sitting on Side/Bed(QC): 6 (Pt will be Mod I with functional mobility with the FWW. ) Sit to Stand (QC): 6 (Pt will be Mod I with functional mobility with the FWW. ) Chair/Yhg-qh-Bknet Xfer(QC): 6 (Pt will be Mod I with functional mobility with the FWW. ) Toilet Transfer (QC): 6 (Pt will be Mod I with functional mobility with the FWW. ) Car Transfer (QC): 6 (Pt will be Mod I with functional mobility with the FWW. ) Does the Patient Walk: Yes Walk 10 feet (QC): 6 (Pt will be Mod I with functional mobility with the FWW. ) Walk 50ft with 2 Turns (QC): 6 (Pt will be Mod I with functional mobility with the FWW. ) Walk 150 ft (QC): 6 (Pt will be Mod I with functional mobility with the FWW. ) Walking 10ft on Uneven Surface: 6 (Pt will be Mod I with functional mobility with the FWW. ) 1 Step (curb) (QC): 6 (Pt will be Mod I with functional mobility with the FWW. ) 4 Steps (QC): 6 (Pt will be Mod I with functional mobility with the FWW. ) 12 Steps (QC): 9 (4 steps at home ) Picking up an Object (QC): 6 (Pt will be Mod I with functional mobility with the FWW. ) Wheel 50 feet with 2 turns (QC: 6 (Mod I with w/c mobility/will not need ) Type: Manual Wheel 150 feet: 6 (Mod I with w/c mobility/will not need ) Type: Manual PT Plan Treatment/Plan Treatment Plan: Continue Plan of Care Treatment Plan: Bed Mobility, Concurrent Therapy, Education, Functional Activity Luke, Functional Strength, Group Therapy, Gait, Safety, Therapeutic Exercise, Transfers Treatment Duration: Jan 30, 2023 Frequency: At least 5 of 7 days/Wk (IRF) Estimated Hrs Per Day: 1.5 hours per day Patient and/or Family Agrees t: Yes Time Time In: 1000 Time Out: 1100 DATE: Jan 17, 2023 Total Billed Treatment Time: 60 Total Billed Treatment 1 visit GT x 2 FA x 1 EX x 1 MARK BANUELOS AQUATIC INSTRUCTOR Jan 17, 2023 14:43
--- NOTE | 2023-01-17 14:46 | Physical Therapy Daily Note ---
PT Daily Note-Current Subjective Pt found seated in recliner upon entry. Agreed to PT. No reports of pain throughout visit. Pain Section J - Health Conditions 1. Rarely or not at all 2. Occasionally 3. Frequently 4. Almost constantly 8. Unable to answer Pain Effect on Sleep: 3 Pain Interference with Therapy: 3 Pain Interference w/Day-to-Day: 3 Mental Status Patient Orientation: Person, Place TLSO Transfers SCALE: Activities may be completed with or without assistive devices. 0-Mwqrbmpqdv-dtsbkmo completes the activity by him/herself with no assistance from a helper. 5-Set-up or Clean-up Assistance-helper sets up or cleans up; patient completes activity. [place] assists only prior to or following the activity. 4-Supervision or Touching Assistance-helper provides verbal cues and/or touching/steadying and/or contact guard assistance as patient completes activity. Assistance may be provided throughout the activity or intermittently. 3-Partial/Moderate Assistance-helper does LESS THAN HALF the effort. [place] lifts, holds or supports trunk or limbs, but provides less than half the effort. 2-Substantial/Maximal Assistance-helper does MORE THAN HALF the effort. [place] lifts or holds trunk or limbs and provides more than half the effort. 0-Rjyyvdqph-uqogir does ALL the effort. Patient does none of the effort to complete the activity. Or, the assistance of 2 or more helpers is required for the patient to complete the activity. If activity was not attempted, code reason: 7-Patient Refused. 9-Not Applicable-not attempted and the patient did not perform the activity before the current illness, exacerbation or injury. 10-Not Attempted due to Environmental Limitations-(lack of equipment, weather restraints, etc.). 88-Not Attempted due to Medical Conditions or Safety Concerns. Sit to Stand (QC): 4 Pt required SBA to perform sit to stand transfer due to strength deficits. Weight Bearing Right Lower Extremity: Right Full Weight Bearing Left Lower Extremity: Left Full Weight Bearing Gait Training Does the Patient Walk?: Yes Distance: 150 x 2 Walk 10 feet (QC): 4 Walk 50 ft with 2 Turns(QC): 4 Walk 150 ft (QC): 4 Gait Persons Needed: 1 Gait Assistive Device: FWW Pt ambulates /c use of FWW and CGA for safety due to balance deficits. Displays improved gait speed and good step lengths during ambulation. No loss of balance displayed while performing. Pt ambulated 150 feet x 2. Exercises NuStep Minutes: 8 NuStep Workload: 2 Assessment Current Status: Good Progress Pt displays good muscle strength and endurance while performing gait training and therapeutic exercises. Able to ambulate up to 150 feet /c use of FWW before requiring a seated rest break. No rest breaks need to complete 8 minutes on nu step. Continue to progress pt as tolerated per POC. PT Allied Health Teacher Goals Residential Goals PT Allied Health Teacher Goals Time Frame: Jan 30, 2023 Roll Left & Right (QC): 6 (Pt will be Mod I with functional mobility with the FWW. ) Sit to Lying (QC): 6 (Pt will be Mod I with functional mobility with the FWW. ) Lying-Sitting on Side/Bed(QC): 6 (Pt will be Mod I with functional mobility with the FWW. ) Sit to Stand (QC): 6 (Pt will be Mod I with functional mobility with the FWW. ) Chair/Nhp-zn-Drmmq Xfer(QC): 6 (Pt will be Mod I with functional mobility with the FWW. ) Toilet Transfer (QC): 6 (Pt will be Mod I with functional mobility with the FWW. ) Car Transfer (QC): 6 (Pt will be Mod I with functional mobility with the FWW. ) Does the Patient Walk: Yes Walk 10 feet (QC): 6 (Pt will be Mod I with functional mobility with the FWW. ) Walk 50ft with 2 Turns (QC): 6 (Pt will be Mod I with functional mobility with the FWW. ) Walk 150 ft (QC): 6 (Pt will be Mod I with functional mobility with the FWW. ) Walking 10ft on Uneven Surface: 6 (Pt will be Mod I with functional mobility with the FWW. ) 1 Step (curb) (QC): 6 (Pt will be Mod I with functional mobility with the FWW. ) 4 Steps (QC): 6 (Pt will be Mod I with functional mobility with the FWW. ) 12 Steps (QC): 9 (4 steps at home ) Picking up an Object (QC): 6 (Pt will be Mod I with functional mobility with the FWW. ) Wheel 50 feet with 2 turns (QC: 6 (Mod I with w/c mobility/will not need ) Type: Manual Wheel 150 feet: 6 (Mod I with w/c mobility/will not need ) Type: Manual PT Plan Treatment/Plan Treatment Plan: Continue Plan of Care Treatment Plan: Bed Mobility, Concurrent Therapy, Education, Functional Activity Luke, Functional Strength, Group Therapy, Gait, Safety, Therapeutic Exercise, Transfers Treatment Duration: Jan 30, 2023 Frequency: At least 5 of 7 days/Wk (IRF) Estimated Hrs Per Day: 1.5 hours per day Patient and/or Family Agrees t: Yes Time Time In: 1330 Time Out: 1400 DATE: Jan 17, 2023 Total Billed Treatment Time: 30 Total Billed Treatment 1 visit GT x 1 EX x 1 MARK BANUELOS COMMERCIAL GREEN BUILDING ARCHITECT Jan 17, 2023 14:46
[2023-01-17 20:15] VITALS: BP 149/67
[2023-01-17] MEDS: CYCLOBENZAPRINE 10 MG TABLET PO PRN (21:31)
[2023-01-18] MEDS: ACETAMINOPHEN 325 MG TABLET PO PRN ×2 (00:15→08:27)
[2023-01-18] MEDS: oxyCODONE IMMEDIATE RELEASE 5 MG TABLET PO PRN ×2 (03:21→18:41)
--- NOTE | 2023-01-18 06:28 | PM&R Progress Note ---
Subjective HPI/CC On Admission Date Seen by Provider: Jan 18, 2023 Time Seen by Provider: 12:00 Subjective/Events-last exam 01/18/2023: Patient doing a lot better Hemoglobin discussed with at the bedside Her daughter who is a nursing undercar specialist requested labs to be done today since they were concerned about rapid hemoglobin loss but there was no evidence he is bleeding from anywhere and he is up-to-date on his colonoscopy per his and he is not tachycardic or presyncopal and no indication for stat labs today since we just started on iron and B12 to help support production of red blood cells. Tried to reassure I did speak to PCP and discussed the case We will check labs within the next 2 days to be sure he is producing more red blood cells but likely chronic anemia if this back pain situation is been going on for 1 year 01/17/2023: Patient dramatically improved Slow recovery Noted hemoglobin so we will empirically place on iron and B12 supplement both Updated on results Patient has struggled for a couple years due to the severity of his spine disease Review of Systems General: Fatigue, Malaise Objective Exam Vital Signs Vital Signs Date Time Temp Pulse Resp B/P (MAP) Pulse Ox O2 Delivery O2 Flow Rate FiO2 01/18/23 09:00 Room Air 01/18/23 08:00 37.1 85 18 129/57 (81) 96 Capillary Refill : General Appearance: No Apparent Distress, WD/WN, Chronically ill HEENT: PERRL/EOMI, Normal ENT Inspection, Pharynx Normal Neck: Full Range of Motion, Normal Inspection, Non Tender, Supple, Carotid Bruit Respiratory: Chest Non Tender, Lungs Clear, Normal Breath Sounds, No Accessory Muscle Use, No Respiratory Distress Cardiovascular: Regular Rate, Rhythm, No Edema, No Gallop, No JVD, No Murmur, Normal Peripheral Pulses Gastrointestinal: Normal Bowel Sounds, No Organomegaly, No Pulsatile Mass, Non Tender, Soft Back: CVA Tenderness (L), CVA Tenderness (R), Decreased Range of Motion, Muscle Spasm, Vertebral Tenderness Extremity: Normal Capillary Refill, Normal Inspection, Normal Range of Motion, Non Tender, No Calf Tenderness, No Pedal Edema Neurologic/Psychiatric: Alert, Oriented x3, No Motor/Sensory Deficits, carbon paper coating machine setter II- XII Norm as Tested, Abnormal Gait, Depressed Affect, Motor Weakness (Bilateral lower extremities 4/5) Skin: Normal Color, Warm/Dry Lymphatic: No Adenopathy Results/Procedures Lab Patient resulted labs reviewed. FIM Transfers Therapy Code Descriptions/Definitions Functional [place] Measure: 0=Not Assessed/NA 4=Minimal Assistance 1=Total Assistance 5=Supervision or Setup 2=Maximal Assistance 6=Modified [place] 3=Moderate Assistance 7=Complete IndependenceSCALE: Activities may be completed with or without assistive devices. 3-Hecscvztgc-oszmmky completes the activity by him/herself with no assistance from a helper. 5-Set-up or Clean-up Assistance-helper sets up or cleans up; patient completes activity. [place] assists only prior to or following the activity. 4-Supervision or Touching Assistance-helper provides verbal cues and/or touching/steadying and/or contact guard assistance as patient completes activity. Assistance may be provided throughout the activity or intermittently. 3-Partial/Moderate Assistance-helper does LESS THAN HALF the effort. [place] lifts, holds or supports trunk or limbs, but provides less than half the effort. 2-Substantial/Maximal Assistance-helper does MORE THAN HALF the effort. [place] lifts or holds trunk or limbs and provides more than half the effort. 3-Kbgbafpis-uazgnh does ALL the effort. Patient does none of the effort to complete the activity. Or, the assistance of 2 or more helpers is required for the patient to complete the activity. If activity was not attempted, code reason: 7-Patient Refused. 9-Not Applicable-not attempted and the patient did not perform the activity before the current illness, exacerbation or injury. 10-Not Attempted due to Environmental Limitations-(lack of equipment, weather restraints, etc.). 88-Not Attempted due to Medical Conditions or Safety Concerns. Roll Left to Right (QC): 4 (SBA ) Sit to Lying (QC): 4 (SBA ) Sit to Stand (QC): 4 Chair/Myi-hw-Useqo Xfer(QC): 4 (CGA ) Car Transfer (QC): 4 (CGA ) Gait Training Does the Patient Walk?: Yes Distance: 150 x 2 Walk 10 feet (QC): 4 Walk 50 ft with 2 Turns(QC): 4 Walk 150 ft (QC): 4 Walking 10ft/uneven surface-QC: 4 (CGA ) Gait Persons Needed: 1 Gait Assistive Device: FWW Wheelchair Training Does the Pt Use a Wheelchair?: No Wheel 50 ft with 2 turns (QC): 9 Wheel 150 ft (QC): 9 Type of Wheelchair: N/A Stair Training #of Steps: 4 1 Step (curb) (QC): 3 (Min A ) 4 Steps (QC): 3 (Min A ) 12 Steps (QC): 9 (4 steps at home ) Balance Picking up an Object (QC): 4 (CGA with qi specialist ) ADL-Treatment Eating (QC): 6 Oral Hygiene (QC): 6 Shower/Bathe Self (QC): 3 (Min A with buttocks for thoroughness) Upper Body Dressing (QC): 4 (SBA, VCs for technique due to decreased shoulder movement) Lower Body Dressing (QC): 3 ( Min A with AE.) On/Off Footwear (QC): 3 (Pt able to doff socks using qi specialist, SBA. Min A with donning using sock aide.) Toileting Hygiene (QC): 4 (SBA. Pt able to demonstrate posterior hygiene using toilet toings. 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 Plan: PT OT Pain control Minimize pain meds 01/17/2023: Supportive care Monitor closely 01/18/2023: Iron infusion Recheck labs within 2 days Reassured spouse at bedside (1) Myelopathy concurrent with and due to stenosis of lumbar spine (2) S/P lumbar fusion BETSY PEREZ DO Jan 18, 2023 06:28
[2023-01-18] MEDS: CYCLOBENZAPRINE 10 MG TABLET PO PRN (06:58)
[2023-01-18] MEDS: CYANOCOBALAMIN 1,000 MCG TABLET PO SCH (06:58)
[2023-01-18 08:00] VITALS: BP 129/57
[2023-01-18] MEDS: GABAPENTIN 300 MG CAPSULE PO SCH (08:26)
[2023-01-18] MEDS: SENNA W/DOCUSATE TABLET PO SCH ×2 (08:26→20:39)
[2023-01-18] MEDS: DOCUSATE SODIUM 100 MG CAPSULE PO SCH ×2 (08:26→20:39)
[2023-01-18] MEDS: PHENYTOIN EXT RELEASE 100 MG CAPSULE PO SCH (08:26)
[2023-01-18] MEDS ORDERED: CATHETER FLUSH 10 ML SYR IVP PRN (15:15)
[2023-01-18 15:16] LABS: ABSOLUTE RETIC # 30 10e9/uL (24-90); BASOPHILS % (AUTO) 0 % (0-10); EOSINOPHILS # (AUTO) 0.1 10^3/uL (0.0-0.3); EOSINOPHILS % (AUTO) 1 % (0-10); HEMATOCRIT 22 % (40-54); HEMOGLOBIN 7.4 g/dL (13.3-17.7); LYMPHOCYTES # (AUTO) 4.5 10^3/uL (1.0-4.0); LYMPHOCYTES % (AUTO) 45 % (12-44); MEAN CORPUSCULAR HEMOGLOBIN 33 pg (25-34); MEAN CORPUSCULAR HGB CONC 34 g/dL (32-36); MEAN CORPUSCULAR VOLUME 98 fL (80-99); MEAN PLATELET VOLUME 13.4 fL (9.0-12.2); MONOCYTES # (AUTO) 0.5 10^3/uL (0.0-1.0); MONOCYTES % (AUTO) 6 % (0-12); NEUTROPHILS # (AUTO) 4.7 10^3/uL (1.8-7.8); NEUTROPHILS % (AUTO) 48 % (42-75); RETICULOCYTE % 1.34 % (0.50-2.40); WHITE BLOOD COUNT 9.9 10^3/uL (4.3-11.0)
[2023-01-18 15:21] LABS: PLATELET COUNT 77 10^3/uL (130-400)
[2023-01-18 15:28] LABS: BAND NEUTROPHILS 0 %; BASOPHILS % (MANUAL) 0 %; EOSINOPHILS % (MANUAL) 1 %; LYMPHOCYTES % (MANUAL) 51 %; MONOCYTES % (MANUAL) 2 %; NEUTROPHILS % (MANUAL) 46 %
[2023-01-18 15:29] LABS: RBC MORPH NORMAL
[2023-01-18 20:07] VITALS: BP 131/63
[2023-01-18] MEDS: CATHETER FLUSH 10 ML SYR IVP SCH (20:39)
[2023-01-19] MEDS: oxyCODONE IMMEDIATE RELEASE 5 MG TABLET PO PRN ×2 (02:09→21:13)
[2023-01-19] MEDS: CYANOCOBALAMIN 1,000 MCG TABLET PO SCH (06:26)
[2023-01-19] MEDS: CYCLOBENZAPRINE 10 MG TABLET PO PRN ×2 (06:26→20:03)
--- NOTE | 2023-01-19 06:34 | PM&R Progress Note ---
Subjective HPI/CC On Admission Date Seen by Provider: Jan 19, 2023 Time Seen by Provider: 12:00 Subjective/Events-last exam 01/19/2023: Patient doing much better Slow recovery at the bedside Hemoglobin increased to 8.6 Iron infusions maintain B12 supplement also 01/18/2023: Patient doing a lot better Hemoglobin discussed with at the bedside Her daughter who is a nursing middle school guidance counselor requested labs to be done today since they were concerned about rapid hemoglobin loss but there was no evidence he is bleeding from anywhere and he is up-to-date on his colonoscopy per his and he is not tachycardic or presyncopal and no indication for stat labs today since we just started on iron and B12 to help support production of red blood cells. Tried to reassure I did speak to PCP and discussed the case We will check labs within the next 2 days to be sure he is producing more red blood cells but likely chronic anemia if this back pain situation is been going on for 1 year 01/17/2023: Patient dramatically improved Slow recovery Noted hemoglobin so we will empirically place on iron and B12 supplement both Updated on results Patient has struggled for a couple years due to the severity of his spine disease Review of Systems General: Fatigue, Malaise Musculoskeletal: back pain Objective Exam Vital Signs Vital Signs Date Time Temp Pulse Resp B/P (MAP) Pulse Ox O2 Delivery O2 Flow Rate FiO2 01/19/23 09:00 Room Air 01/19/23 08:00 36.9 86 18 114/67 (83) 98 Capillary Refill : General Appearance: No Apparent Distress, WD/WN, Chronically ill HEENT: PERRL/EOMI, Normal ENT Inspection, Pharynx Normal Neck: Full Range of Motion, Normal Inspection, Non Tender, Supple, Carotid Bruit Respiratory: Chest Non Tender, Lungs Clear, Normal Breath Sounds, No Accessory Muscle Use, No Respiratory Distress Cardiovascular: Regular Rate, Rhythm, No Edema, No Gallop, No JVD, No Murmur, Normal Peripheral Pulses Gastrointestinal: Normal Bowel Sounds, No Organomegaly, No Pulsatile Mass, Non Tender, Soft Back: CVA Tenderness (L), CVA Tenderness (R), Decreased Range of Motion, Muscle Spasm, Vertebral Tenderness Extremity: Normal Capillary Refill, Normal Inspection, Normal Range of Motion, Non Tender, No Calf Tenderness, No Pedal Edema Neurologic/Psychiatric: Alert, Oriented x3, No Motor/Sensory Deficits, elevator service technician II- XII Norm as Tested, Abnormal Gait, Depressed Affect, Motor Weakness (Bilateral lower extremities 4/5) Skin: Normal Color, Warm/Dry Lymphatic: No Adenopathy Results/Procedures Lab Laboratory Tests 01/19/23 06:46 Patient resulted labs reviewed. FIM Transfers Therapy Code Descriptions/Definitions Functional [place] Measure: 0=Not Assessed/NA 4=Minimal Assistance 1=Total Assistance 5=Supervision or Setup 2=Maximal Assistance 6=Modified [place] 3=Moderate Assistance 7=Complete IndependenceSCALE: Activities may be completed with or without assistive devices. 0-Atmasobrmi-njditho completes the activity by him/herself with no assistance f rom a helper. 5-Set-up or Clean-up Assistance-helper sets up or cleans up; patient completes activity. [place] assists only prior to or following the activity. 4-Supervision or Touching Assistance-helper provides verbal cues and/or touching/steadying and/or contact guard assistance as patient completes activity. Assistance may be provided throughout the activity or intermittently. 3-Partial/Moderate Assistance-helper does LESS THAN HALF the effort. [place] lifts, holds or supports trunk or limbs, but provides less than half the effort. 2-Substantial/Maximal Assistance-helper does MORE THAN HALF the effort. [place] lifts or holds trunk or limbs and provides more than half the effort. 4-Wschtkrdt-fmkgsd does ALL the effort. Patient does none of the effort to complete the activity. Or, the assistance of 2 or more helpers is required for the patient to complete the activity. If activity was not attempted, code reason: 7-Patient Refused. 9-Not Applicable-not attempted and the patient did not perform the activity before the current illness, exacerbation or injury. 10-Not Attempted due to Environmental Limitations-(lack of equipment, weather restraints, etc.). 88-Not Attempted due to Medical Conditions or Safety Concerns. Roll Left to Right (QC): 4 (SBA ) Sit to Lying (QC): 4 (SBA ) Sit to Stand (QC): 4 Chair/Stq-fa-Rfzbk Xfer(QC): 4 (CGA ) Car Transfer (QC): 4 (CGA ) Gait Training Does the Patient Walk?: Yes Distance: 150 x 2 Walk 10 feet (QC): 4 Walk 50 ft with 2 Turns(QC): 4 Walk 150 ft (QC): 4 Walking 10ft/uneven surface-QC: 4 (CGA ) Gait Persons Needed: 1 Gait Assistive Device: FWW Wheelchair Training Does the Pt Use a Wheelchair?: No Wheel 50 ft with 2 turns (QC): 9 Wheel 150 ft (QC): 9 Type of Wheelchair: N/A Stair Training #of Steps: 4 1 Step (curb) (QC): 3 (Min A ) 4 Steps (QC): 3 (Min A ) 12 Steps (QC): 9 (4 steps at home ) Balance Picking up an Object (QC): 4 (CGA with wire basket maker ) ADL-Treatment Eating (QC): 6 Oral Hygiene (QC): 6 Shower/Bathe Self (QC): 3 (Min A with buttocks for thoroughness) Upper Body Dressing (QC): 4 (SBA, VCs for technique due to decreased shoulder movement) Lower Body Dressing (QC): 3 ( Min A with AE.) On/Off Footwear (QC): 3 (Pt able to doff socks using wire basket maker, SBA. Min A with donning using sock aide.) Toileting Hygiene (QC): 4 (SBA. Pt able to demonstrate posterior hygiene using toilet toings. 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
[2023-01-19] MEDS: CATHETER FLUSH 10 ML SYR IVP SCH ×3 (06:38→20:03)
[2023-01-19 06:54] LABS: BASOPHILS % (AUTO) 0 % (0-10); MEAN CORPUSCULAR HGB CONC 34 g/dL (32-36); NEUTROPHILS # (AUTO) 3.3 10^3/uL (1.8-7.8)
[2023-01-19 06:56] LABS: EOSINOPHILS # (AUTO) 0.3 10^3/uL (0.0-0.3); EOSINOPHILS % (AUTO) 3 % (0-10); HEMATOCRIT 25 % (40-54); HEMOGLOBIN 8.6 g/dL (13.3-17.7); LYMPHOCYTES # (AUTO) 5.3 10^3/uL (1.0-4.0); LYMPHOCYTES % (AUTO) 55 % (12-44); MEAN CORPUSCULAR HEMOGLOBIN 33 pg (25-34); MEAN CORPUSCULAR VOLUME 97 fL (80-99); MEAN PLATELET VOLUME 11.5 fL (9.0-12.2); MONOCYTES # (AUTO) 0.7 10^3/uL (0.0-1.0); MONOCYTES % (AUTO) 7 % (0-12); NEUTROPHILS % (AUTO) 35 % (42-75); PLATELET COUNT 104 10^3/uL (130-400); WHITE BLOOD COUNT 9.6 10^3/uL (4.3-11.0)
[2023-01-19 07:06] LABS: ALBUMIN 3.3 GM/DL (3.2-4.5); POTASSIUM 4.2 MMOL/L (3.6-5.0)
[2023-01-19 07:07] LABS: CALCIUM 8.5 MG/DL (8.5-10.1)
[2023-01-19 07:09] LABS: TOTAL PROTEIN 5.8 GM/DL (6.4-8.2)
[2023-01-19 07:11] LABS: BILIRUBIN,TOTAL 0.5 MG/DL (0.1-1.0)
[2023-01-19 07:12] LABS: CREATININE SERUM 0.9 MG/DL (0.60-1.30)
[2023-01-19 08:00] VITALS: BP 114/67
[2023-01-19] MEDS: SENNA W/DOCUSATE TABLET PO SCH ×2 (08:13→20:03)
[2023-01-19] MEDS: PHENYTOIN EXT RELEASE 100 MG CAPSULE PO SCH (08:13)
[2023-01-19] MEDS: DOCUSATE SODIUM 100 MG CAPSULE PO SCH ×2 (08:13→20:02)
[2023-01-19] MEDS: IRON SUCROSE 200 MG/10 ML VIAL IV SCH (08:42)
[2023-01-19] MEDS: ACETAMINOPHEN 325 MG TABLET PO PRN (20:03)
[2023-01-19 20:10] VITALS: BP 124/73
[2023-01-19] MEDS: GABAPENTIN 300 MG CAPSULE PO PRN (20:22)
[2023-01-20] MEDS: CYCLOBENZAPRINE 10 MG TABLET PO PRN ×3 (02:01→20:13)
[2023-01-20] MEDS: ACETAMINOPHEN 325 MG TABLET PO PRN ×4 (02:01→21:57)
--- NOTE | 2023-01-20 05:25 | PM&R Progress Note ---
Subjective HPI/CC On Admission Date Seen by Provider: Jan 20, 2023 Time Seen by Provider: 10:30 Subjective/Events-last exam 01/20/2023: Patient doing better No pain is reported No falls Reviewed meds and labs 01/19/2023: Patient doing much better Slow recovery at the bedside Hemoglobin increased to 8.6 Iron infusions maintain B12 supplement also 01/18/2023: Patient doing a lot better Hemoglobin discussed with at the bedside Her daughter who is a nursing plate put in worker requested labs to be done today since they were concerned about rapid hemoglobin loss but there was no evidence he is bleeding from anywhere and he is up-to-date on his colonoscopy per his and he is not tachycardic or presyncopal and no indication for stat labs today since we just started on iron and B12 to help support production of red blood cells. Tried to reassure I did speak to PCP and discussed the case We will check labs within the next 2 days to be sure he is producing more red blood cells but likely chronic anemia if this back pain situation is been going on for 1 year 01/17/2023: Patient dramatically improved Slow recovery Noted hemoglobin so we will empirically place on iron and B12 supplement both Updated on results Patient has struggled for a couple years due to the severity of his spine disease Review of Systems General: Fatigue, Malaise Musculoskeletal: back pain Objective Exam Vital Signs Vital Signs Date Time Temp Pulse Resp B/P (MAP) Pulse Ox O2 Delivery O2 Flow Rate FiO2 01/20/23 09:00 Room Air 01/20/23 08:00 35.7 80 16 115/60 (78) 98 Capillary Refill : General Appearance: No Apparent Distress, WD/WN, Chronically ill HEENT: PERRL/EOMI, Normal ENT Inspection, Pharynx Normal Neck: Full Range of Motion, Normal Inspection, Non Tender, Supple, Carotid Bruit Respiratory: Chest Non Tender, Lungs Clear, Normal Breath Sounds, No Accessory Muscle Use, No Respiratory Distress Cardiovascular: Regular Rate, Rhythm, No Edema, No Gallop, No JVD, No Murmur, Normal Peripheral Pulses Gastrointestinal: Normal Bowel Sounds, No Organomegaly, No Pulsatile Mass, Non Tender, Soft Back: CVA Tenderness (L), CVA Tenderness (R), Decreased Range of Motion, Muscle Spasm, Vertebral Tenderness Extremity: Normal Capillary Refill, Normal Inspection, Normal Range of Motion, Non Tender, No Calf Tenderness, No Pedal Edema Neurologic/Psychiatric: Alert, Oriented x3, No Motor/Sensory Deficits, archeologist II- XII Norm as Tested, Abnormal Gait, Depressed Affect, Motor Weakness (Bilateral lower extremities 4/5) Skin: Normal Color, Warm/Dry Lymphatic: No Adenopathy Results/Procedures Lab Patient resulted labs reviewed. FIM Transfers Therapy Code Descriptions/Definitions Functional [place] Measure: 0=Not Assessed/NA 4=Minimal Assistance 1=Total Assistance 5=Supervision or Setup 2=Maximal Assistance 6=Modified [place] 3=Moderate Assistance 7=Complete IndependenceSCALE: Activities may be completed with or without assistive devices. 9-Bnisrxompd-hmxncan completes the activity by him/herself with no assistance from a helper. 5-Set-up or Clean-up Assistance-helper sets up or cleans up; patient completes activity. [place] assists only prior to or following the activity. 4-Supervision or Touching Assistance-helper provides verbal cues and/or touching/steadying and/or contact guard assistance as patient completes activity. Assistance may be provided throughout the activity or intermittently. 3-Partial/Moderate Assistance-helper does LESS THAN HALF the effort. [place] lifts, holds or supports trunk or limbs, but provides less than half the effort. 2-Substantial/Maximal Assistance-helper does MORE THAN HALF the effort. [place] lifts or holds trunk or limbs and provides more than half the effort. 1-Lbusvsqyx-xewdyi does ALL the effort. Patient does none of the effort to complete the activity. Or, the assistance of 2 or more helpers is required for the patient to complete the activity. If activity was not attempted, code reason: 7-Patient Refused. 9-Not Applicable-not attempted and the patient did not perform the activity before the current illness, exacerbation or injury. 10-Not Attempted due to Environmental Limitations-(lack of equipment, weather restraints, etc.). 88-Not Attempted due to Medical Conditions or Safety Concerns. Roll Left to Right (QC): 4 (SBA ) Sit to Lying (QC): 4 (SBA ) Sit to Stand (QC): 4 Chair/Mvh-wf-Tqstg Xfer(QC): 4 (CGA ) Car Transfer (QC): 4 (CGA ) Gait Training Does the Patient Walk?: Yes Distance: 150 x 2 Walk 10 feet (QC): 4 Walk 50 ft with 2 Turns(QC): 4 Walk 150 ft (QC): 4 Walking 10ft/uneven surface-QC: 4 (CGA ) Gait Persons Needed: 1 Gait Assistive Device: FWW Wheelchair Training Does the Pt Use a Wheelchair?: No Wheel 50 ft with 2 turns (QC): 9 Wheel 150 ft (QC): 9 Type of Wheelchair: N/A Stair Training #of Steps: 4 1 Step (curb) (QC): 3 (Min A ) 4 Steps (QC): 3 (Min A ) 12 Steps (QC): 9 (4 steps at home ) Balance Picking up an Object (QC): 4 (CGA with partner alliance manager ) ADL-Treatment Eating (QC): 6 Oral Hygiene (QC): 6 Shower/Bathe Self (QC): 3 (Min A with buttocks for thoroughness) Upper Body Dressing (QC): 4 (SBA, VCs for technique due to decreased shoulder movement) Lower Body Dressing (QC): 3 ( Min A with AE.) On/Off Footwear (QC): 3 (Pt able to doff socks using partner alliance manager, SBA. Min A with donning using sock aide.) Toileting Hygiene (QC): 4 (SBA. Pt able to demonstrate posterior hygiene using toilet toings. 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 Plan: PT OT Pain control Minimize pain meds 01/17/2023: Supportive care Monitor closely 01/18/2023: Iron infusion Recheck labs within 2 days Reassured spouse at bedside 01/19/2023: Supportive care Monitor closely 01/20/2023: Supportive care Monitor closely Fall risk (1) Myelopathy concurrent with and due to stenosis of lumbar spine (2) S/P lumbar fusion BETSY PEREZ DO Jan 20, 2023 05:25
[2023-01-20] MEDS: CYANOCOBALAMIN 1,000 MCG TABLET PO SCH (06:17)
[2023-01-20] MEDS: CATHETER FLUSH 10 ML SYR IVP SCH ×3 (06:17→20:14)
[2023-01-20 08:00] VITALS: BP 115/60
[2023-01-20] MEDS: DOCUSATE SODIUM 100 MG CAPSULE PO SCH ×2 (08:12→20:22)
[2023-01-20] MEDS: PHENYTOIN EXT RELEASE 100 MG CAPSULE PO SCH (08:12)
[2023-01-20] MEDS: SENNA W/DOCUSATE TABLET PO SCH ×2 (08:12→20:22)
[2023-01-20] MEDS: LACTULOSE SYRUP 10GM/15ML 30ML UDC PO PRN (12:26)
--- NOTE | 2023-01-20 12:36 | Physical Therapy Daily Note ---
PT Daily Note-Current Subjective Patient agreeable to PT. Had difficulty over the weekend with pain medications and nausea - better now. Pain Comment: 5-6/10 in back throughout therapy session Section J - Health Conditions 1. Rarely or not at all 2. Occasionally 3. Frequently 4. Almost constantly 8. Unable to answer Pain Effect on Sleep: 3 Pain Interference with Therapy: 1 Pain Interference w/Day-to-Day: 2 Appearance Drain bulb from surgery nearly full at end of therapy session - nursing notified. Nursing plans to remove drain today. Patient able to don back brace (I) prior to upright activity. Mental Status Attachments: Drains Transfers SCALE: Activities may be completed with or without assistive devices. 9-Opjweupinb-mqlfyba completes the activity by him/herself with no assistance from a helper. 5-Set-up or Clean-up Assistance-helper sets up or cleans up; patient completes activity. [place] assists only prior to or following the activity. 4-Supervision or Touching Assistance-helper provides verbal cues and/or touching /steadying and/or contact guard assistance as patient completes activity. Assistance may be provided throughout the activity or intermittently. 3-Partial/Moderate Assistance-helper does LESS THAN HALF the effort. [place] lifts, holds or supports trunk or limbs, but provides less than half the effort. 2-Substantial/Maximal Assistance-helper does MORE THAN HALF the effort. [place] lifts or holds trunk or limbs and provides more than half the effort. 0-Qdfgciwwd-jvmemp does ALL the effort. Patient does none of the effort to complete the activity. Or, the assistance of 2 or more helpers is required for the patient to complete the activity. If activity was not attempted, code reason: 7-Patient Refused. 9-Not Applicable-not attempted and the patient did not perform the activity before the current illness, exacerbation or injury. 10-Not Attempted due to Environmental Limitations-(lack of equipment, weather restraints, etc.). 88-Not Attempted due to Medical Conditions or Safety Concerns. Sit to Stand (QC): 6 ((I) from recliner, Nustep, and toilet with use of grab bar.) Chair/Jjs-ic-Yabnd Xfer(QC): 6 (with FWW) Toilet Transfer (QC): 5 (gait belt removed so that patient could manipulate clothing, drain bulb held out of the way for sit<>stand off toilet) Weight Bearing Right Lower Extremity: Right Full Weight Bearing Left Lower Extremity: Left Full Weight Bearing Gait Training Distance: 400' x 3 with FWW SBA-(I). No LOB. Walk 10 feet (QC): 6 Walk 50 ft with 2 Turns(QC): 6 Walk 150 ft (QC): 5 Stair Training #of Steps: 15 12 Steps (QC): 5 15 steps with (B) rails SBA- (I), 3 steps /c 1 rail and walker turned as 2nd r ail CGA. Patient states a OPHELIA is installing a 2nd railing at home. Exercises (B) LE ex in sitting with RTB: 15 reps DF (B) 15 reps PF (B) hip flexion x 10 (B) hip extension x 10 (B) LAQ x 15 (B) knee flexion x 15 (B) hip abduction x 15 (B) isometric hip adduction x 15 (B). NuStep Minutes: 11 NuStep Workload: 4 PT [employer] Electrical Person Goals [employer] Electrical Person Goals PT Jail Goals Time Frame: Jan 30, 2023 Roll Left & Right (QC): 6 (Pt will be Mod I with functional mobility with the FWW. ) Sit to Lying (QC): 6 (Pt will be Mod I with functional mobility with the FWW. ) Lying-Sitting on Side/Bed(QC): 6 (Pt will be Mod I with functional mobility with the FWW. ) Sit to Stand (QC): 6 (Pt will be Mod I with functional mobility with the FWW. ) Chair/Jxv-yi-Fdgjb Xfer(QC): 6 (Pt will be Mod I with functional mobility with the FWW. ) Toilet Transfer (QC): 6 (Pt will be Mod I with functional mobility with the FWW. ) Car Transfer (QC): 6 (Pt will be Mod I with functional mobility with the FWW. ) Does the Patient Walk: Yes Walk 10 feet (QC): 6 (Pt will be Mod I with functional mobility with the FWW. ) Walk 50ft with 2 Turns (QC): 6 (Pt will be Mod I with functional mobility with the FWW. ) Walk 150 ft (QC): 6 (Pt will be Mod I with functional mobility with the FWW. ) Walking 10ft on Uneven Surface: 6 (Pt will be Mod I with functional mobility with the FWW. ) 1 Step (curb) (QC): 6 (Pt will be Mod I with functional mobility with the FWW. ) 4 Steps (QC): 6 (Pt will be Mod I with functional mobility with the FWW. ) 12 Steps (QC): 9 (4 steps at home ) Picking up an Object (QC): 6 (Pt will be Mod I with functional mobility with the FWW. ) Wheel 50 feet with 2 turns (QC: 6 (Mod I with w/c mobility/will not need ) Type: Manual Wheel 150 feet: 6 (Mod I with w/c mobility/will not need ) Type: Manual PT Plan Treatment/Plan Treatment Plan: Continue Plan of Care Treatment Plan: Bed Mobility, Concurrent Therapy, Education, Functional Activity [place], Functional Strength, Group Therapy, Gait, Safety, Therapeutic Exercise, Transfers Treatment Duration: Jan 30, 2023 Frequency: At least 5 of 7 days/Wk (IRF) Estimated Hrs Per Day: 1.5 hours per day Patient and/or Family Agrees t: Yes Time Time In: 1030 Time Out: 1200 DATE: Jan 20, 2023 Total Billed Treatment Time: 90 Total Billed Treatment 3 EX, 2 GT, 1 FA Aida Hampton PT Jan 20, 2023 12:36
--- NOTE | 2023-01-20 13:22 | Occupational Ther Daily Note ---
OT Current Status-Daily Note Subjective Pt up in recliner, agreeable to OT tx. Mental Status/Objective Patient Orientation: Person, Place, Time, Situation Attachments: Drains, Other-See Comments (back brace, R knee brace) ADL-Treatment Therapy Code Descriptions/Definitions Functional [place] Measure: 0=Not Assessed/NA 4=Minimal Assistance 1=Total Assistance 5=Supervision or Setup 2=Maximal Assistance 6=Modified [place] 3=Moderate Assistance 7=Complete IndependenceSCALE: Activities may be completed with or without assistive devices. 5-Txwtafnqfl-wloxwrm completes the activity by him/herself with no assistance from a helper. 5-Set-up or Clean-up Assistance-helper sets up or cleans up; patient completes activity. [place] assists only prior to or following the activity. 4-Supervision or Touching Assistance-helper provides verbal cues and/or touching/steadying and/or contact guard assistance as patient completes activity. Assistance may be provided throughout the activity or intermittently. 3-Partial/Moderate Assistance-helper does LESS THAN HALF the effort. [place] lifts, holds or supports trunk or limbs, but provides less than half the effort. 2-Substantial/Maximal Assistance-helper does MORE THAN HALF the effort. [place] lifts or holds trunk or limbs and provides more than half the effort. 3-Ptgfrqwpt-lylkpi does ALL the effort. Patient does none of the effort to complete the activity. Or, the assistance of 2 or more helpers is required for the patient to complete the activity. If activity was not attempted, code reason: 7-Patient Refused. 9-Not Applicable-not attempted and the patient did not perform the activity before the current illness, exacerbation or injury. 10-Not Attempted due to Environmental Limitations-(lack of equipment, weather restraints, etc.). 88-Not Attempted due to Medical Conditions or Safety Concerns. Eating (QC): 6 Oral Hygiene (QC): 6 (seated at sink) Shower/Bathe Self (QC): 4 (Min VCs for adaptive techniques to maintain back precautions.) Upper Body Dressing (QC): 5 Lower Body Dressing (QC): 4 (SBA, min VCs to utilize AE for maintaining back precautions.) On/Off Footwear: 3 (Pt doffed/donned gripper socks, SBA with AE. Assist with tedhose.) Toileting Hygiene (QC): 4 (SBA) Toilet Transfer (QC): 4 (SBA) Other Treatment Pt in recliner, used FWW to transfer into bathroom and onto toilet, SBA. Pt completed toileting, then transferred to chair at sink. Pt completed sponge bath and dressing tasks as outlined above, the returned to recliner for seated rest break and donning of tedhose. Pt states unable to don R knee brace himself. states she is comfortable assisting pt with donning knee brace at home. Pt used FWW to perform functional mobility to large shower room. Pt educated on and attempted tub transfer via tub transfer bench, SBA. Pt and verbalize understanding of transfer. Pt returned to his room using FWW, SBA. Post tx, pt in recliner, call light in reach and all needs met. Education OT Patient Education: Correct positioning, Energy conservation, Modified ADL techniques, Progress toward Goal/Update tx plan, Purpose of tx/functional activities, Reviewed precautions, Rehab process, Safety issues, Transfer techniques, Use of adapted equipment Teaching Recipient: Patient Teaching Methods: Discussion Response to Teaching: Verbalize Understanding OT Jewel Hole Gauger Goals Senior Living Goals Time Frame: Feb 07, 2023 Acute change in mental status: 0 Inattention: 0 Disorganized thinkin Altered level of consciousness: 0 Eating (QC): 6 Oral Hygiene (QC): 6 Toileting Hygiene (QC): 6 Shower/Bathe Self (QC): 6 Upper Body Dressing (QC): 6 Lower Body Dressing (QC): 6 On/Off Footwear (QC): 6 Additional Goals: 1-Demonstrate ADL Tasks, 2-Verbalize Understanding, 3- ImproveStrength/[place] 1=Demonstrate adherence to instructed precautions during ADL tasks. 2=Patient will verbalize/demonstrate understanding of assistive devices/m odifications for ADL. 3=Patient will improve strength/tolerance for activity to enable patient to perform ADL's. OT Education/Plan Problem List/Assessment Assessment: Decreased Activ Tolerance, Decreased UE Strength, Impaired Funct Balance, Impaired I ADL's, Impaired Self-Care Skills Discharge Recommendations Plan/Recommendations: Continue POC Treatment Plan/Plan of Care Patient would benefit from OT for education, treatment and training to promote independence in ADL's, mobility, safety and/or upper extremity function for ADL's. Plan of Care: ADL Retraining, Functional Mobility, Group Exercise/Act as Ind, UE Funct Exercise/Act Treatment Duration: Feb 07, 2023 Frequency: At least 5 of 7 days/Wk (IRF) Estimated Hrs Per Day: 1.5 hours per day Agreement: Yes Rehab Potential: Good Time Start Time: 08:00 Stop Time: 09:30 DATE: Jan 20, 2023 Total Time Billed (hr/min): 90 Billed Treatment Time 1, ADL 6 ISAURA MCDONALD OT Jan 20, 2023 13:22
[2023-01-20] MEDS: NAPROXEN 250 MG TABLET PO PRN (14:06)
[2023-01-20] MEDS: BISACODYL 10 MG SUPPOSITORY PR PRN (17:45)
[2023-01-20] MEDS: oxyCODONE IMMEDIATE RELEASE 5 MG TABLET PO PRN (18:38)
[2023-01-20] MEDS: GABAPENTIN 300 MG CAPSULE PO PRN (20:13)
[2023-01-20 20:33] VITALS: BP 114/70
[2023-01-21] MEDS: NAPROXEN 250 MG TABLET PO PRN ×2 (01:57→14:07)
[2023-01-21] MEDS: CYCLOBENZAPRINE 10 MG TABLET PO PRN ×3 (04:05→20:19)
[2023-01-21] MEDS: ACETAMINOPHEN 325 MG TABLET PO PRN ×4 (04:05→21:41)
--- NOTE | 2023-01-21 05:01 | PM&R Progress Note ---
Subjective HPI/CC On Admission Date Seen by Provider: Jan 21, 2023 Time Seen by Provider: 09:00 Subjective/Events-last exam 01/21/2023: Patient doing well No falls Improved pain BM+ 01/20/2023: Patient doing better No pain is reported No falls Reviewed meds and labs 01/19/2023: Patient doing much better Slow recovery at the bedside Hemoglobin increased to 8.6 Iron infusions maintain B12 supplement also 01/18/2023: Patient doing a lot better Hemoglobin discussed with at the bedside Her daughter who is a nursing body hanger requested labs to be done today since they were concerned about rapid hemoglobin loss but there was no evidence he is bleeding from anywhere and he is up-to-date on his colonoscopy per his and he is not tachycardic or presyncopal and no indication for stat labs today since we just started on iron and B12 to help support production of red blood cells. Tried to reassure I did speak to PCP and discussed the case We will check labs within the next 2 days to be sure he is producing more red blood cells but likely chronic anemia if this back pain situation is been going on for 1 year 01/17/2023: Patient dramatically improved Slow recovery Noted hemoglobin so we will empirically place on iron and B12 supplement both Updated on results Patient has struggled for a couple years due to the severity of his spine disease Review of Systems General: Fatigue, Malaise Objective Exam Vital Signs Vital Signs Date Time Temp Pulse Resp B/P (MAP) Pulse Ox O2 Delivery O2 Flow Rate FiO2 01/21/23 09:02 Room Air 01/21/23 08:00 36.2 87 16 128/75 (92) 100 Capillary Refill : General Appearance: No Apparent Distress, WD/WN, Chronically ill HEENT: PERRL/EOMI, Normal ENT Inspection, Pharynx Normal Neck: Full Range of Motion, Normal Inspection, Non Tender, Supple, Carotid Bruit Respiratory: Chest Non Tender, Lungs Clear, Normal Breath Sounds, No Accessory Muscle Use, No Respiratory Distress Cardiovascular: Regular Rate, Rhythm, No Edema, No Gallop, No JVD, No Murmur, Normal Peripheral Pulses Gastrointestinal: Normal Bowel Sounds, No Organomegaly, No Pulsatile Mass, Non Tender, Soft Back: CVA Tenderness (L), CVA Tenderness (R), Decreased Range of Motion, Muscle Spasm, Vertebral Tenderness Extremity: Normal Capillary Refill, Normal Inspection, Normal Range of Motion, Non Tender, No Calf Tenderness, No Pedal Edema Neurologic/Psychiatric: Alert, Oriented x3, No Motor/Sensory Deficits, line director II- XII Norm as Tested, Abnormal Gait, Depressed Affect, Motor Weakness (Bilateral lower extremities 4/5) Skin: Normal Color, Warm/Dry Lymphatic: No Adenopathy Results/Procedures Lab Patient resulted labs reviewed. FIM Transfers Therapy Code Descriptions/Definitions Functional [place] Measure: 0=Not Assessed/NA 4=Minimal Assistance 1=Total Assistance 5=Supervision or Setup 2=Maximal Assistance 6=Modified [place] 3=Moderate Assistance 7=Complete IndependenceSCALE: Activities may be completed with or without assistive devices. 1-Axgfyxggdx-zgjxwwm completes the activity by him/herself with no assistance from a helper. 5-Set-up or Clean-up Assistance-helper sets up or cleans up; patient completes activity. [place] assists only prior to or following the activity. 4-Supervision or Touching Assistance-helper provides verbal cues and/or touching/steadying and/or contact guard assistance as patient completes activ ity. Assistance may be provided throughout the activity or intermittently. 3-Partial/Moderate Assistance-helper does LESS THAN HALF the effort. Kennan lifts, holds or supports trunk or limbs, but provides less than half the effort. 2-Substantial/Maximal Assistance-helper does MORE THAN HALF the effort. Kennan lifts or holds trunk or limbs and provides more than half the effort. 3-Uktteehmc-qclbhg does ALL the effort. Patient does none of the effort to complete the activity. Or, the assistance of 2 or more helpers is required for the patient to complete the activity. If activity was not attempted, code reason: 7-Patient Refused. 9-Not Applicable-not attempted and the patient did not perform the activity before the current illness, exacerbation or injury. 10-Not Attempted due to Environmental Limitations-(lack of equipment, weather restraints, etc.). 88-Not Attempted due to Medical Conditions or Safety Concerns. Roll Left to Right (QC): 4 (SBA ) Sit to Lying (QC): 4 (SBA ) Sit to Stand (QC): 6 ((I) from recliner, Nustep, and toilet with use of grab bar.) Chair/Prn-rj-Stglg Xfer(QC): 6 (with FWW) Car Transfer (QC): 4 (CGA ) Gait Training Does the Patient Walk?: Yes Distance: 400' x 3 with FWW SBA-(I). No LOB. Walk 10 feet (QC): 6 Walk 50 ft with 2 Turns(QC): 6 Walk 150 ft (QC): 5 Walking 10ft/uneven surface-QC: 4 (CGA ) Gait Persons Needed: 1 Gait Assistive Device: FWW Wheelchair Training Does the Pt Use a Wheelchair?: No Wheel 50 ft with 2 turns (QC): 9 Wheel 150 ft (QC): 9 Type of Wheelchair: N/A Stair Training #of Steps: 15 1 Step (curb) (QC): 3 (Min A ) 4 Steps (QC): 3 (Min A ) 12 Steps (QC): 5 Balance Picking up an Object (QC): 4 (CGA with farm field manager ) ADL-Treatment Eating (QC): 6 Oral Hygiene (QC): 6 (seated at sink) Shower/Bathe Self (QC): 4 (Min VCs for adaptive techniques to maintain back precautions.) Upper Body Dressing (QC): 5 Lower Body Dressing (QC): 4 (SBA, min VCs to utilize AE for maintaining back precautions.) On/Off Footwear (QC): 3 (Pt doffed/donned gripper socks, SBA with AE. 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 Plan: PT OT Pain control Minimize pain meds 01/17/2023: Supportive care Monitor closely 01/18/2023: Iron infusion Recheck labs within 2 days Reassured spouse at bedside 01/19/2023: Supportive care Monitor closely 01/20/2023: Supportive care Monitor closely Fall risk 01/21/2023: BM+ Improved (1) Myelopathy concurrent with and due to stenosis of lumbar spine (2) S/P lumbar fusion BETSY PEREZ DO Jan 21, 2023 05:01
[2023-01-21] MEDS: CATHETER FLUSH 10 ML SYR IVP SCH ×3 (06:17→22:14)
[2023-01-21] MEDS: CYANOCOBALAMIN 1,000 MCG TABLET PO SCH (06:17)
[2023-01-21] MEDS: PHENYTOIN EXT RELEASE 100 MG CAPSULE PO SCH (07:58)
[2023-01-21] MEDS: DOCUSATE SODIUM 100 MG CAPSULE PO SCH ×2 (07:59→21:40)
[2023-01-21 08:00] VITALS: BP 128/75
[2023-01-21] MEDS: GABAPENTIN 300 MG CAPSULE PO PRN (08:03)
[2023-01-21] MEDS: SENNA W/DOCUSATE TABLET PO SCH ×2 (08:04→21:40)
--- NOTE | 2023-01-21 08:39 | Physical Therapy Daily Note ---
PT Daily Note-Current Subjective Patient had his drain removed yesterday. States he was uncomfortable most of the night due to back pain and slept in the recliner. Rates his back pain as 6/10. Patient agreeable to trying Zynex IFC. Rated Pain 5/10 /c IFC on during gait. Pain Section J - Health Conditions 1. Rarely or not at all 2. Occasionally 3. Frequently 4. Almost constantly 8. Unable to answer Pain Effect on Sleep: 3 Pain Interference with Therapy: 1 Pain Interference w/Day-to-Day: 2 Appearance Preventative dsg on (L) heel (no pressure sores, but patient uses that heel to help position himself in bed). Max (A) to don knee high MONIQUE hose (B). (A) to don (B) shoes over MONIQUE hose (max (A) (L) due to dsg, max (A) (R) due to foot swelling). Mental Status Patient Orientation: Person, Place, Time, Situation (R) knee brace, IV access Transfers SCALE: Activities may be completed with or without assistive devices. 0-Oyfymcyfdj-aachizj completes the activity by him/herself with no assistance from a helper. 5-Set-up or Clean-up Assistance-helper sets up or cleans up; patient completes activity. [place] assists only prior to or following the activity. 4-Supervision or Touching Assistance-helper provides verbal cues and/or touching/steadying and/or contact guard assistance as patient completes activity. Assistance may be provided throughout the activity or intermittently. 3-Partial/Moderate Assistance-helper does LESS THAN HALF the effort. [place] lifts, holds or supports trunk or limbs, but provides less than half the effort. 2-Substantial/Maximal Assistance-helper does MORE THAN HALF the effort. [place] lifts or holds trunk or limbs and provides more than half the effort. 9-Xcfyojrpj-bqyjel does ALL the effort. Patient does none of the effort to complete the activity. Or, the assistance of 2 or more helpers is required for the patient to complete the activity. If activity was not attempted, code reason: 7-Patient Refused. 9-Not Applicable-not attempted and the patient did not perform the activity before the current illness, exacerbation or injury. 10-Not Attempted due to Environmental Limitations-(lack of equipment, weather restraints, etc.). 88-Not Attempted due to Medical Conditions or Safety Concerns. Roll Left & Right (QC): 6 (on bed with use of bed rail. ) Sit to Lying (QC): 6 (on monge mat) Lying to Sitting/Side of Bed(Q: 6 (on bed with bed rail. 4 on monge mat -- offered arm as "Bed rail".) Sit to Stand (QC): 4 (cues for hand placement x 2, then (I) afterward) Chair/Ssl-xy-Vxjxf Xfer(QC): 5 (obtained walker for patient) Weight Bearing Right Lower Extremity: Right Full Weight Bearing Left Lower Extremity: Left Full Weight Bearing Gait Training Distance: 400'+ Walk 10 feet (QC): 6 (/c FWW) Walk 50 ft with 2 Turns(QC): 6 (/c FWW) Walk 150 ft (QC): 6 (/c FWW) Dian improved this date with regular shoes on feet vs slipper socks. Upright posture improved as well. Patient will require this use of a FWW at discharge for safe ambulation due to his pain and balance deficits. These issues cannot be helped with the use of a cane. Wheelchair Training Does the Pt Use a Wheelchair?: No Exercises NuStep Minutes: 12 NuStep Workload: 4 Treatments Seated neural flosses x 5 each LE Sustained LAQ x 10 AP (B) Sitting theraband exercise: 1 x 15 ham curls (B) 1 x 15 LAQ (B) 1 x 15 DF (B) 1 x 15 PF (B) 1 x 10 hip abduction Hooklying exercise: TA x 5 TA /c mini march x 10 TA with hip abduction with RTB Seated mini APT/PPT x 10 HEP created and given to patient for low level lumbar stabilization exercise and LE strengthening with Tband. All therapy this date completed with Zynex IFC in quadripolar placement at low back, level 6. Patient states his pain was a 4-510 /p removal of the IFC unit. Patient wore unit for 70' during treatment Assessment Current Status: Good Progress (Patient is progressing with LE strength/endurance and mobility. Back pain continues to be problematic and impairs sleep.) PT Mcfp Goals Mcfp Goals PT Import/Export Clerk Goals Time Frame: Jan 30, 2023 Roll Left & Right (QC): 6 (Pt will be Mod I with functional mobility with the FWW. ) Sit to Lying (QC): 6 (Pt will be Mod I with functional mobility with the FWW. ) Lying-Sitting on Side/Bed(QC): 6 (Pt will be Mod I with functional mobility with the FWW. ) Sit to Stand (QC): 6 (Pt will be Mod I with functional mobility with the FWW. ) Chair/Ixd-cc-Rmgsh Xfer(QC): 6 (Pt will be Mod I with functional mobility with the FWW. ) Toilet Transfer (QC): 6 (Pt will be Mod I with functional mobility with the FWW. ) Car Transfer (QC): 6 (Pt will be Mod I with functional mobility with the FWW. ) Does the Patient Walk: Yes Walk 10 feet (QC): 6 (Pt will be Mod I with functional mobility with the FWW. ) Walk 50ft with 2 Turns (QC): 6 (Pt will be Mod I with functional mobility with the FWW. ) Walk 150 ft (QC): 6 (Pt will be Mod I with functional mobility with the FWW. ) Walking 10ft on Uneven Surface: 6 (Pt will be Mod I with functional mobility with the FWW. ) 1 Step (curb) (QC): 6 (Pt will be Mod I with functional mobility with the FWW. ) 4 Steps (QC): 6 (Pt will be Mod I with functional mobility with the FWW. ) 12 Steps (QC): 9 (4 steps at home ) Picking up an Object (QC): 6 (Pt will be Mod I with functional mobility with the FWW. ) Wheel 50 feet with 2 turns (QC: 6 (Mod I with w/c mobility/will not need ) Type: Manual Wheel 150 feet: 6 (Mod I with w/c mobility/will not need ) Type: Manual PT Plan Problem List Problem List: Activity Tolerance, Functional Strength, Balance, Gait, Transfer, Bed Mobility Treatment/Plan Treatment Plan: Continue Plan of Care Treatment Plan: Bed Mobility, Concurrent Therapy, Education, Functional Activity Luke, Functional Strength, Group Therapy, Gait, Safety, Therapeutic Exercise, Transfers Treatment Duration: Jan 24, 2023 Frequency: At least 5 of 7 days/Wk (IRF) Estimated Hrs Per Day: 1.5 hours per day Patient and/or Family Agrees t: Yes Time Time In: 800 Time Out: 930 DATE: Jan 21, 2023 Total Billed Treatment Time: 90 Total Billed Treatment 3EX, 2 GT, 1 FA Aida Hampton PT Jan 21, 2023 08:39
[2023-01-21] MEDS: IRON SUCROSE 200 MG/10 ML VIAL IV SCH (09:08)
--- NOTE | 2023-01-21 10:40 | Occupational Ther Daily Note ---
OT Current Status-Daily Note Subjective Pt agreeable to OT Tx with focus on shower since NELLIE drain has been removed. Pt has 4/10 pain in back. Mental Status/Objective Patient Orientation: Person, Place, Time, Situation ADL-Treatment Therapy Code Descriptions/Definitions Functional [place] Measure: 0=Not Assessed/NA 4=Minimal Assistance 1=Total Assistance 5=Supervision or Setup 2=Maximal Assistance 6=Modified [place] 3=Moderate Assistance 7=Complete IndependenceSCALE: Activities may be completed with or without assistive devices. 7-Oqrdwhortw-iifgdmv completes the activity by him/herself with no assistance from a helper. 5-Set-up or Clean-up Assistance-helper sets up or cleans up; patient completes a ctivity. [place] assists only prior to or following the activity. 4-Supervision or Touching Assistance-helper provides verbal cues and/or touching/steadying and/or contact guard assistance as patient completes activity. Assistance may be provided throughout the activity or intermittently. 3-Partial/Moderate Assistance-helper does LESS THAN HALF the effort. [place] lifts, holds or supports trunk or limbs, but provides less than half the effort. 2-Substantial/Maximal Assistance-helper does MORE THAN HALF the effort. [place] lifts or holds trunk or limbs and provides more than half the effort. 9-Iipldxgqv-pwwmxy does ALL the effort. Patient does none of the effort to complete the activity. Or, the assistance of 2 or more helpers is required for the patient to complete the activity. If activity was not attempted, code reason: 7-Patient Refused. 9-Not Applicable-not attempted and the patient did not perform the activity before the current illness, exacerbation or injury. 10-Not Attempted due to Environmental Limitations-(lack of equipment, weather restraints, etc.). 88-Not Attempted due to Medical Conditions or Safety Concerns. Eating (QC): 6 Oral Hygiene (QC): 6 (standing) Shower/Bathe Self (QC): 5 (Set up to cover IV.) Upper Body Dressing (QC): 5 (pts spouse gathered clothes for pt) Lower Body Dressing (QC): 5 (pts spouse gathered clothes for pt) On/Off Footwear: 5 (pts spouse gathered clothes for pt) Other Treatment Pt in recliner, used FWW to transfer into bathroom and onto SC. Pt doffed clothes, completed shower, then donned clothes using AE. Pt able to use AE without cues while maintaining precautions. Pt stood at sink to complete grooming tasks, IND. Pt used FWW to perform functional mobility to therapy gym, IND with mobility and transfers. OT tx focused on increasing BUE strength and activity tolerance, and fine motor strength/coordination. Pt completed nut/bolt task, removing and placing nuts/bolts from block using BUEs, x32 total. Pt then removed beads from moderate-heavy resistance (green) theraputty, able to locate all beads without cues. Pt returned to room using FWW, IND, transferring to recliner. OT provided pt with written HEP for active ROM and dowel exercises, he verbalized understanding. Post tx, pt in recliner, call light in reach and all needs met. Education OT Patient Education: Correct positioning, Energy conservation, Modified ADL techniques, Progress toward Goal/Update tx plan, Purpose of tx/functional activities, Rehab process Teaching Recipient: Patient Teaching Methods: Discussion Response to Teaching: Verbalize Understanding OT Jail Goals Travel Registered Nurse Oncology Goals Time Frame: Feb 07, 2023 Acute change in mental status: 0 Inattention: 0 Disorganized thinkin Altered level of consciousness: 0 Eating (QC): 6 Oral Hygiene (QC): 6 Toileting Hygiene (QC): 6 Shower/Bathe Self (QC): 6 Upper Body Dressing (QC): 6 Lower Body Dressing (QC): 6 On/Off Footwear (QC): 6 Additional Goals: 1-Demonstrate ADL Tasks, 2-Verbalize Understanding, 3-Im proveStrength/Luke 1=Demonstrate adherence to instructed precautions during ADL tasks. 2=Patient will verbalize/demonstrate understanding of assistive devices/modifications for ADL. 3=Patient will improve strength/tolerance for activity to enable patient to perform ADL's. OT Education/Plan Problem List/Assessment Assessment: Decreased Activ Tolerance, Decreased UE Strength, Impaired I ADL's Discharge Recommendations Plan/Recommendations: Continue POC Treatment Plan/Plan of Care Patient would benefit from OT for education, treatment and training to promote independence in ADL's, mobility, safety and/or upper extremity function for ADL's. Plan of Care: ADL Retraining, Functional Mobility, Group Exercise/Act as Ind, UE Funct Exercise/Act Treatment Duration: Feb 07, 2023 Frequency: At least 5 of 7 days/Wk (IRF) Estimated Hrs Per Day: 1.5 hours per day Agreement: Yes Rehab Potential: Good Time Start Time: 09:45 Stop Time: 11:15 DATE: Jan 21, 2023 Total Time Billed (hr/min): 90 Billed Treatment Time 1, ADL 4 (60'), FA 2 (30') ISAURA MCDONALD OT Jan 21, 2023 10:40
[2023-01-21] MEDS: oxyCODONE IMMEDIATE RELEASE 5 MG TABLET PO PRN ×2 (19:02→23:39)
[2023-01-21 21:07] VITALS: BP 110/68
[2023-01-22] MEDS: NAPROXEN 250 MG TABLET PO PRN ×2 (02:10→14:03)
[2023-01-22] MEDS: CYCLOBENZAPRINE 10 MG TABLET PO PRN ×3 (04:06→20:24)
[2023-01-22] MEDS: ACETAMINOPHEN 325 MG TABLET PO PRN ×4 (04:07→23:04)
[2023-01-22] MEDS: CYANOCOBALAMIN 1,000 MCG TABLET PO SCH (06:03)
[2023-01-22] MEDS: CATHETER FLUSH 10 ML SYR IVP SCH ×2 (06:03→13:59)
[2023-01-22 08:00] VITALS: BP 128/62
--- NOTE | 2023-01-22 08:34 | Occupational Ther Daily Note ---
OT Current Status-Daily Note Subjective Pt agreeable to OT tx. Pt and spouse reports they feel ready to discharge and would like to discharge tomorrow. Pt and spouse participated in family training. Mental Status/Objective Patient Orientation: Normal For Age ADL-Treatment Therapy Code Descriptions/Definitions Functional [place] Measure: 0=Not Assessed/NA 4=Minimal Assistance 1=Total Assistance 5=Supervision or Setup 2=Maximal Assistance 6=Modified [place] 3=Moderate Assistance 7=Complete IndependenceSCALE: Activities may be completed with or without assistive devices. 3-Znikqpcgtb-rtiskmo completes the activity by him/herself with no assistance from a helper. 5-Set-up or Clean-up Assistance-helper sets up or cleans up; patient completes activity. [place] assists only prior to or following the activity. 4-Supervision or Touching Assistance-helper provides verbal cues and/or touching/steadying and/or contact guard assistance as patient completes activity. Assistance may be provided throughout the activity or intermittently. 3-Partial/Moderate Assistance-helper does LESS THAN HALF the effort. [place] lifts, holds or supports trunk or limbs, but provides less than half the effort. 2-Substantial/Maximal Assistance-helper does MORE THAN HALF the effort. [place] lifts or holds trunk or limbs and provides more than half the effort. 5-Fchynprzy-mohgvm does ALL the effort. Patient does none of the effort to complete the activity. Or, the assistance of 2 or more helpers is required for the patient to complete the activity. If activity was not attempted, code reason: 7-Patient Refused. 9-Not Applicable-not attempted and the patient did not perform the activity before the current illness, exacerbation or injury. 10-Not Attempted due to Environmental Limitations-(lack of equipment, weather restraints, etc.). 88-Not Attempted due to Medical Conditions or Safety Concerns. Eating (QC): 6 Oral Hygiene (QC): 6 (standing at sink) Upper Body Dressing (QC): 6 Lower Body Dressing (QC): 6 On/Off Footwear: 6 Toileting Hygiene (QC): 6 Toilet Transfer (QC): 6 Other Treatment [id number]: OT tx. Pt in recliner, agreeable to OT Tx. Pt used FWW to gather clothes and AE for dressing. Pt completed dressing tasks independently using AE as needed, while maintaining back precautions. [id number]: OT/PT cotreat due to skill of 2 clinicians required which a rehab therapist could not perform in order to complete family training with pt's spouse. OT focused on ADLs, UE placement and cues for sequencing and safety, PT focused on LE placement, gross overall movement, transfers and mobility. OT provided education on assistance level required with ADLS, equipment recommendations, and answered questions regarding ADLs. Pt then performed functional mobility and transfers around [facility] common areas/2nd floor, including steps, uneven surface, car transfer, and picking up an object off of the ground using a manager hematology. PT and spouse report no further questions or concerns and they feel comfortable with pt discharging. Post tx, pt in therapy gym with PT, all needs met. Education OT Patient Education: Correct positioning, Energy conservation, Modified ADL techniques, Progress toward Goal/Update tx plan, Purpose of tx/functional activities, Rehab process, Use of adapted equipment Teaching Recipient: Patient, Family Teaching Methods: Discussion Response to Teaching: Verbalize Understanding OT [facility]sp Goals Verse Writer Goals Time Frame: Feb 07, 2023 Acute change in mental status: 0 Inattention: 0 Disorganized thinkin Altered level of consciousness: 0 Eating (QC): 6 Oral Hygiene (QC): 6 Toileting Hygiene (QC): 6 Shower/Bathe Self (QC): 6 Upper Body Dressing (QC): 6 Lower Body Dressing (QC): 6 On/Off Footwear (QC): 6 Additional Goals: 1-Demonstrate ADL Tasks, 2-Verbalize Understanding, 3- ImproveStrength/Luke 1=Demonstrate adherence to instructed precautions during ADL tasks. 2=Patient will verbalize/demonstrate understanding of assistive devices/modifications for ADL. 3=Patient will improve strength/tolerance for activity to enable patient to perform ADL's. OT Education/Plan Problem List/Assessment Assessment: Decreased Activ Tolerance, Decreased UE Strength, Impaired Funct Balance, Impaired I ADL's, Impaired Self-Care Skills Discharge Recommendations Plan/Recommendations: Continue POC Treatment Plan/Plan of Care Patient would benefit from OT for education, treatment and training to promote independence in ADL's, mobility, safety and/or upper extremity function for ADL's. Plan of Care: ADL Retraining, Functional Mobility, Group Exercise/Act as Ind, UE Funct Exercise/Act Treatment Duration: Feb 07, 2023 Frequency: At least 5 of 7 days/Wk (IRF) Estimated Hrs Per Day: 1.5 hours per day Agreement: Yes Rehab Potential: Good Time Start Time: 07:30 Stop Time: 08:30 DATE: Jan 22, 2023 Total Time Billed (hr/min): 60 Billed Treatment Time 30' OT tx. 30' cotx 1, ADL 2 (30'), FA 2 (30') ISAURA MCDONALD OT Jan 22, 2023 08:34
--- NOTE | 2023-01-22 09:01 | Physical Therapy Daily Note ---
PT Daily Note-Current Subjective Pt found seated in recliner /c OT present upon entry. Agreed to PT/OT co- treatment. Reports that his back pain is not bad currently. PT focus on LE, strengthening, transfers, and ambulation. OT focus on UE strengthening, dressing, and ADLs. Pain Section J - Health Conditions 1. Rarely or not at all 2. Occasionally 3. Frequently 4. Almost constantly 8. Unable to answer Pain Effect on Sleep: 3 Pain Interference with Therapy: 1 Pain Interference w/Day-to-Day: 2 Mental Status Patient Orientation: Person, Place Transfers SCALE: Activities may be completed with or without assistive devices. 2-Ofirlhivds-slvlpnf completes the activity by him/herself with no assistance from a helper. 5-Set-up or Clean-up Assistance-helper sets up or cleans up; patient completes activity. [place] assists only prior to or following the activity. 4-Supervision or Touching Assistance-helper provides verbal cues and/or touching/steadying and/or contact guard assistance as patient completes activity. Assistance may be provided throughout the activity or intermittently. 3-Partial/Moderate Assistance-helper does LESS THAN HALF the effort. [place] lifts, holds or supports trunk or limbs, but provides less than half the effort. 2-Substantial/Maximal Assistance-helper does MORE THAN HALF the effort. [place] lifts or holds trunk or limbs and provides more than half the effort. 9-Rzousyiiw-evezrj does ALL the effort. Patient does none of the effort to complete the activity. Or, the assistance of 2 or more helpers is required for the patient to complete the activity. If activity was not attempted, code reason: 7-Patient Refused. 9-Not Applicable-not attempted and the patient did not perform the activity before the current illness, exacerbation or injury. 10-Not Attempted due to Environmental Limitations-(lack of equipment, weather restraints, etc.). 88-Not Attempted due to Medical Conditions or Safety Concerns. Roll Left & Right (QC): 6 Sit to Lying (QC): 6 Lying to Sitting/Side of Bed(Q: 6 Sit to Stand (QC): 6 Chair/Eki-gm-Tdche Xfer(QC): 6 Toilet Transfer (QC): 6 Car Transfer (QC): 6 Pt independent /c all completed transfers. Bed mobility performed /c raised head of bed. Sit to stand transfer completed 10x from mat without use of UEs for push off. Weight Bearing Right Lower Extremity: Right Full Weight Bearing Left Lower Extremity: Left Full Weight Bearing Gait Training Does the Patient Walk?: Yes Distance: 40, 400, 60 feet Walk 10 feet (QC): 6 Walk 50 ft with 2 Turns(QC): 6 Walk 150 ft (QC): 6 Walking 10ft/uneven surface-QC: 6 Gait Persons Needed: 1 Gait Assistive Device: FWW Pt ambulates independently /c use of FWW up to 400 feet without requiring a rest break. Displays good step lengths and steady ambulation speed. No loss of balance demonstrated during gait training. Also ambulates 10 feet across uneven mat. Pt ambulated distances of 40, 400, 60 feet. Wheelchair Training Does the Pt Use a Wheelchair?: No Stair Training Stair Training: Handrails/: 1 handrail #of Steps: 12 1 Step (curb) (QC): 6 4 Steps (QC): 6 12 Steps (QC): 6 Stairs: Pattern: Reciprocal Pt ascends/descends steps /c 1 hand rail using a reciprocal step pattern. Co mpletes 12 steps total independently. Balance Picking up an Object (QC): 6 Treatments Standing Therapeutic Exercises: Side-stepping /c RTB x 5 trips at // Retro-ambulation /c RTB x 5 trips at // Marching /c RTB x 5 trips at // Assessment Current Status: Good Progress Pt displays good activity tolerance throughout visit. Required occasional short seated rest breaks. Pt ambulates up to 400 feet /c use of FWW independently. Performs all completed functional transfers independently. Picks up small object off floor independently /c use of hand held grabber. Able to ascend/descend 12 six inch steps independently. Continue to progress per POC. PT Rod Hanger Goals Long-Term Goals PT Long-Term Goals Time Frame: Jan 30, 2023 Roll Left & Right (QC): 6 (Pt will be Mod I with functional mobility with the FWW. ) Sit to Lying (QC): 6 (Pt will be Mod I with functional mobility with the FWW. ) Lying-Sitting on Side/Bed(QC): 6 (Pt will be Mod I with functional mobility with the FWW. ) Sit to Stand (QC): 6 (Pt will be Mod I with functional mobility with the FWW. ) Chair/Iji-cw-Cdfsr Xfer(QC): 6 (Pt will be Mod I with functional mobility with the FWW. ) Toilet Transfer (QC): 6 (Pt will be Mod I with functional mobility with the FWW. ) Car Transfer (QC): 6 (Pt will be Mod I with functional mobility with the FWW. ) Does the Patient Walk: Yes Walk 10 feet (QC): 6 (Pt will be Mod I with functional mobility with the FWW. ) Walk 50ft with 2 Turns (QC): 6 (Pt will be Mod I with functional mobility with the FWW. ) Walk 150 ft (QC): 6 (Pt will be Mod I with functional mobility with the FWW. ) Walking 10ft on Uneven Surface: 6 (Pt will be Mod I with functional mobility with the FWW. ) 1 Step (curb) (QC): 6 (Pt will be Mod I with functional mobility with the FWW. ) 4 Steps (QC): 6 (Pt will be Mod I with functional mobility with the FWW. ) 12 Steps (QC): 9 (4 steps at home ) Picking up an Object (QC): 6 (Pt will be Mod I with functional mobility with the FWW. ) Wheel 50 feet with 2 turns (QC: 6 (Mod I with w/c mobility/will not need ) Type: Manual Wheel 150 feet: 6 (Mod I with w/c mobility/will not need ) Type: Manual PT Plan Treatment/Plan Treatment Plan: Continue Plan of Care Treatment Plan: Bed Mobility, Concurrent Therapy, Education, Functional Activity Luke, Functional Strength, Group Therapy, Gait, Safety, Therapeutic Exercise, Transfers Treatment Duration: Jan 24, 2023 Frequency: At least 5 of 7 days/Wk (IRF) Estimated Hrs Per Day: 1.5 hours per day Patient and/or Family Agrees t: Yes Time Time In: 799 Time Out: 899 DATE: Jan 22, 2023 Total Billed Treatment Time: 60 Total Billed Treatment 1 visit FA x 2 GT x 1 EX x 1 Co-treatment time: 7966-7838 Individual treatment time: 1674-4000 Total treatment time: 7464-8625 MARK BANUELOS PTA Jan 22, 2023 09:01
[2023-01-22] MEDS: SENNA W/DOCUSATE TABLET PO SCH ×2 (09:02→20:24)
[2023-01-22] MEDS: DOCUSATE SODIUM 100 MG CAPSULE PO SCH ×2 (09:02→20:24)
[2023-01-22] MEDS: PHENYTOIN EXT RELEASE 100 MG CAPSULE PO SCH (09:02)
[2023-01-22] MEDS: GABAPENTIN 300 MG CAPSULE PO PRN (09:05)
--- NOTE | 2023-01-22 10:07 | PM&R Progress Note ---
Subjective HPI/CC On Admission Date Seen by Provider: Jan 22, 2023 Time Seen by Provider: 12:30 Subjective/Events-last exam 01/22/2023: No major issues OTC products will be picked up by No new meds needed DC tomorrow 01/21/2023: Patient doing well No falls Improved pain BM+ 01/20/2023: Patient doing better No pain is reported No falls Reviewed meds and labs 01/19/2023: Patient doing much better Slow recovery at the bedside Hemoglobin increased to 8.6 Iron infusions maintain B12 supplement also 01/18/2023: Patient doing a lot better Hemoglobin discussed with at the bedside Her daughter who is a nursing generalist requested labs to be done today since they were concerned about rapid hemoglobin loss but there was no evidence he is bleeding from anywhere and he is up-to-date on his colonoscopy per his and he is not tachycardic or presyncopal and no indication for stat labs today since we just started on iron and B12 to help support production of red blood cells. Tried to reassure I did speak to PCP and discussed the case We will check labs within the next 2 days to be sure he is producing more red blood cells but likely chronic anemia if this back pain situation is been going on for 1 year 01/17/2023: Patient dramatically improved Slow recovery Noted hemoglobin so we will empirically place on iron and B12 supplement both Updated on results Patient has struggled for a couple years due to the severity of his spine disease Review of Systems General: Fatigue, Malaise Objective Exam Vital Signs Vital Signs Date Time Temp Pulse Resp B/P (MAP) Pulse Ox O2 Delivery O2 Flow Rate FiO2 01/22/23 09:55 Room Air 01/22/23 08:00 36.1 87 14 128/62 (84) 99 Capillary Refill : General Appearance: No Apparent Distress, WD/WN, Chronically ill HEENT: PERRL/EOMI, Normal ENT Inspection, Pharynx Normal Neck: Full Range of Motion, Normal Inspection, Non Tender, Supple, Carotid Bru it Respiratory: Chest Non Tender, Lungs Clear, Normal Breath Sounds, No Accessory Muscle Use, No Respiratory Distress Cardiovascular: Regular Rate, Rhythm, No Edema, No Gallop, No JVD, No Murmur, Normal Peripheral Pulses Gastrointestinal: Normal Bowel Sounds, No Organomegaly, No Pulsatile Mass, Non Tender, Soft Back: CVA Tenderness (L), CVA Tenderness (R), Decreased Range of Motion, Muscle Spasm, Vertebral Tenderness Extremity: Normal Capillary Refill, Normal Inspection, Normal Range of Motion, Non Tender, No Calf Tenderness, No Pedal Edema Neurologic/Psychiatric: Alert, Oriented x3, No Motor/Sensory Deficits, food counter worker II- XII Norm as Tested, Abnormal Gait, Depressed Affect, Motor Weakness (Bilateral lower extremities 4/5) Skin: Normal Color, Warm/Dry Lymphatic: No Adenopathy Results/Procedures Lab Patient resulted labs reviewed. FIM Transfers Therapy Code Descriptions/Definitions Functional [place] Measure: 0=Not Assessed/NA 4=Minimal Assistance 1=Total Assistance 5=Supervision or Setup 2=Maximal Assistance 6=Modified [place] 3=Moderate Assistance 7=Complete IndependenceSCALE: Activities may be completed with or without assistive devices. 1-Zrbrlftaxc-qqudujt completes the activity by him/herself with no assistance from a helper. 5-Set-up or Clean-up Assistance-helper sets up or cleans up; patient completes activity. [place] assists only prior to or following the activity. 4-Supervision or Touching Assistance-helper provides verbal cues and/or touching/steadying and/or contact guard assistance as patient completes activity. Assistance may be provided throughout the activity or intermittently. 3-Partial/Moderate Assistance-helper does LESS THAN HALF the effort. [place] lifts, holds or supports trunk or limbs, but provides less than half the effort. 2-Substantial/Maximal Assistance-helper does MORE THAN HALF the effort. [place] lifts or holds trunk or limbs and provides more than half the effort. 4-Ulieuklja-oerpmt does ALL the effort. Patient does none of the effort to complete the activity. Or, the assistance of 2 or more helpers is required for the patient to complete the activity. If activity was not attempted, code reason: 7-Patient Refused. 9-Not Applicable-not attempted and the patient did not perform the activity before the current illness, exacerbation or injury. 10-Not Attempted due to Environmental Limitations-(lack of equipment, weather restraints, etc.). 88-Not Attempted due to Medical Conditions or Safety Concerns. Roll Left to Right (QC): 6 Sit to Lying (QC): 6 Sit to Stand (QC): 6 Chair/Ngu-xz-Btkma Xfer(QC): 6 Car Transfer (QC): 6 Gait Training Does the Patient Walk?: Yes Distance: 40, 400, 60 feet Walk 10 feet (QC): 6 Walk 50 ft with 2 Turns(QC): 6 Walk 150 ft (QC): 6 Walking 10ft/uneven surface-QC: 6 Gait Persons Needed: 1 Gait Assistive Device: FWW Wheelchair Training Does the Pt Use a Wheelchair?: No Wheel 50 ft with 2 turns (QC): 9 Wheel 150 ft (QC): 9 Type of Wheelchair: N/A Stair Training Stair Training: Handrails/: 2 handrails #of Steps: 15 1 Step (curb) (QC): 3 (Min A ) 4 Steps (QC): 3 (Min A ) 12 Steps (QC): 5 Balance Picking up an Object (QC): 4 (CGA with lap winding machine operator ) ADL-Treatment Eating (QC): 6 Oral Hygiene (QC): 6 (standing at sink) Shower/Bathe Self (QC): 5 (Set up to cover IV.) Upper Body Dressing (QC): 6 Lower Body Dressing (QC): 6 On/Off Footwear (QC): 6 Toileting Hygiene (QC): 6 Toilet Transfer (QC): 6 Assessment/Plan Assessment and Plan Assess & Plan/Chief Complaint Assessment: 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 (2) S/P lumbar fusion BETSY PEREZ DO Jan 22, 2023 10:07
[2023-01-22] MEDS: oxyCODONE IMMEDIATE RELEASE 5 MG TABLET PO PRN (10:14)
--- NOTE | 2023-01-22 13:29 | Physical Therapy Daily Note ---
PT Daily Note-Current Subjective Pt found seated in recliner upon entry. Agreed to PT. States that his back is a little stiff this PM but it is not too bad. Pain Section J - Health Conditions 1. Rarely or not at all 2. Occasionally 3. Frequently 4. Almost constantly 8. Unable to answer Pain Effect on Sleep: 3 Pain Interference with Therapy: 1 Pain Interference w/Day-to-Day: 2 Mental Status Patient Orientation: Person, Place Transfers SCALE: Activities may be completed with or without assistive devices. 0-Focibzgrpa-kerlkeu completes the activity by him/herself with no assistance from a helper. 5-Set-up or Clean-up Assistance-helper sets up or cleans up; patient completes activity. [place] assists only prior to or following the activity. 4-Supervision or Touching Assistance-helper provides verbal cues and/or touching/steadying and/or contact guard assistance as patient completes activity. Assistance may be provided throughout the activity or intermittently. 3-Partial/Moderate Assistance-helper does LESS THAN HALF the effort. [place] lifts, holds or supports trunk or limbs, but provides less than half the effort. 2-Substantial/Maximal Assistance-helper does MORE THAN HALF the effort. [place] lifts or holds trunk or limbs and provides more than half the effort. 8-Rwbqwisum-cvoqtt does ALL the effort. Patient does none of the effort to complete the activity. Or, the assistance of 2 or more helpers is required for the patient to complete the activity. If activity was not attempted, code reason: 7-Patient Refused. 9-Not Applicable-not attempted and the patient did not perform the activity before the current illness, exacerbation or injury. 10-Not Attempted due to Environmental Limitations-(lack of equipment, weather restraints, etc.). 88-Not Attempted due to Medical Conditions or Safety Concerns. Sit to Stand (QC): 6 Pt independent /c sit to stand transfers. Weight Bearing Right Lower Extremity: Right Full Weight Bearing Left Lower Extremity: Left Full Weight Bearing Gait Training Does the Patient Walk?: Yes Distance: 400, 60 Walk 10 feet (QC): 6 Walk 50 ft with 2 Turns(QC): 6 Walk 150 ft (QC): 6 Gait Persons Needed: 1 Gait Assistive Device: FWW Pt independent /c ambulation /c use of a FWW. Ambulates up to 400 feet /c no loss of balance. Exercises NuStep Minutes: 15 NuStep Workload: 5 Assessment Current Status: Good Progress Pt displays good muscle endurance and strength /c all therapeutic activities. Ambulates 400 feet independently /c use of FWW. No loss of balance displayed. Demonstrates good BLE /c therapeutic exercises. Continue to progress pt per POC. PT Preschool Aide Goals Preschool Aide Goals PT Usp Goals Time Frame: Jan 30, 2023 Roll Left & Right (QC): 6 (Pt will be Mod I with functional mobility with the FWW. ) Sit to Lying (QC): 6 (Pt will be Mod I with functional mobility with the FWW. ) Lying-Sitting on Side/Bed(QC): 6 (Pt will be Mod I with functional mobility with the FWW. ) Sit to Stand (QC): 6 (Pt will be Mod I with functional mobility with the FWW. ) Chair/Zdx-qa-Rhyut Xfer(QC): 6 (Pt will be Mod I with functional mobility with the FWW. ) Toilet Transfer (QC): 6 (Pt will be Mod I with functional mobility with the FWW. ) Car Transfer (QC): 6 (Pt will be Mod I with functional mobility with the FWW. ) Does the Patient Walk: Yes Walk 10 feet (QC): 6 (Pt will be Mod I with functional mobility with the FWW. ) Walk 50ft with 2 Turns (QC): 6 (Pt will be Mod I with functional mobility with the FWW. ) Walk 150 ft (QC): 6 (Pt will be Mod I with functional mobility with the FWW. ) Walking 10ft on Uneven Surface: 6 (Pt will be Mod I with functional mobility with the FWW. ) 1 Step (curb) (QC): 6 (Pt will be Mod I with functional mobility with the FWW. ) 4 Steps (QC): 6 (Pt will be Mod I with functional mobility with the FWW. ) 12 Steps (QC): 9 (4 steps at home ) Picking up an Object (QC): 6 (Pt will be Mod I with functional mobility with the FWW. ) Wheel 50 feet with 2 turns (QC: 6 (Mod I with w/c mobility/will not need ) Type: Manual Wheel 150 feet: 6 (Mod I with w/c mobility/will not need ) Type: Manual PT Plan Treatment/Plan Treatment Plan: Continue Plan of Care Treatment Plan: Bed Mobility, Concurrent Therapy, Education, Functional Activity Luke, Functional Strength, Group Therapy, Gait, Safety, Therapeutic Exercise, Transfers Treatment Duration: Jan 24, 2023 Frequency: At least 5 of 7 days/Wk (IRF) Estimated Hrs Per Day: 1.5 hours per day Patient and/or Family Agrees t: Yes Time Time In: 1300 Time Out: 1330 DATE: Jan 22, 2023 Total Billed Treatment Time: 30 Total Billed Treatment 1 visit GT x 1 EX x 1 MARK BANUELOS FOOD MIXER REPAIRER Jan 22, 2023 13:29
--- NOTE | 2023-01-22 14:08 | Occupational Ther Daily Note ---
OT Current Status-Daily Note Subjective Pt agreeable to OT Tx, states he is ready to go home tomorrow. Mental Status/Objective Patient Orientation: Normal For Age ADL-Treatment Therapy Code Descriptions/Definitions Functional [place] Measure: 0=Not Assessed/NA 4=Minimal Assistance 1=Total Assistance 5=Supervision or Setup 2=Maximal Assistance 6=Modified [place] 3=Moderate Assistance 7=Complete IndependenceSCALE: Activities may be completed with or without assistive devices. 8-Nwhcotkivz-pbizisg completes the activity by him/herself with no assistance from a helper. 5-Set-up or Clean-up Assistance-helper sets up or cleans up; patient completes activity. [place] assists only prior to or following the activity. 4-Supervision or Touching Assistance-helper provides verbal cues and/or touching/steadying and/or contact guard assistance as patient completes activity. Assistance may be provided throughout the activity or intermittently. 3-Partial/Moderate Assistance-helper does LESS THAN HALF the effort. [place] lifts, holds or supports trunk or limbs, but provides less than half the effort. 2-Substantial/Maximal Assistance-helper does MORE THAN HALF the effort. [place] lifts or holds trunk or limbs and provides more than half the effort. 2-Laxbvyskl-eqzvfn does ALL the effort. Patient does none of the effort to complete the activity. Or, the assistance of 2 or more helpers is required for the patient to complete the activity. If activity was not attempted, code reason: 7-Patient Refused. 9-Not Applicable-not attempted and the patient did not perform the activity before the current illness, exacerbation or injury. 10-Not Attempted due to Environmental Limitations-(lack of equipment, weather restraints, etc.). 88-Not Attempted due to Medical Conditions or Safety Concerns. Other Treatment Pt used FWW to perform functional mobility around [facility] common area/2nd floor, independently, then transferred into therapy gym. OT Tx focused on increasing BUE fine motor strength and activity tolerance. Pt removed beads from mod-heavy resistance (green) theraputty. Pt able to locate all beads without cues. Pt returned to his room using FWW, IND, transferring to recliner. Post tx, pt in recliner, call light in reach and all needs met. BIMS CAM BIMS Expression of Ideas and Wants: Without Difficulty Understanding Verbal Content: Understands Brief Interview/Mental Status: Yes IRF JESSI BIMS: IRF JESSI BIMS Response (Comments) Value Repitition of Three Words Three 3 Recalls Socks Yes, No Cue Required 2 Recalls Blue Yes, After Cueing (Color) 1 Recalls Bed Yes, After Cueing 1 Year Correct 3 Month Accurate Within 5 Days 2 Day Correct 1 Total 13 CAM Mental Status Change/Baseline: 0 Inattention: 0 Disorganized thinkin Altered level of consciousness: 0 OT Conference Services Coordinator Goals Care Home Goals Time Frame: Feb 07, 2023 Acute change in mental status: 0 Inattention: 0 Disorganized thinkin Altered level of consciousness: 0 Eating (QC): 6 Oral Hygiene (QC): 6 Toileting Hygiene (QC): 6 Shower/Bathe Self (QC): 6 Upper Body Dressing (QC): 6 Lower Body Dressing (QC): 6 On/Off Footwear (QC): 6 Additional Goals: 1-Demonstrate ADL Tasks, 2-Verbalize Understanding, 3-Im proveStrength/Luke 1=Demonstrate adherence to instructed precautions during ADL tasks. 2=Patient will verbalize/demonstrate understanding of assistive devices/modifications for ADL. 3=Patient will improve strength/tolerance for activity to enable patient to perform ADL's. OT Education/Plan Problem List/Assessment Assessment: Decreased Activ Tolerance Discharge Recommendations Plan/Recommendations: Continue POC Therapy Discharge Recommendati: Home & Family Equpiment Recommendations-D/C: Extended Bath Bench, Extended Shower Sprayer, Wood Flour Miller, Sock Aide Treatment Plan/Plan of Care Patient would benefit from OT for education, treatment and training to promote independence in ADL's, mobility, safety and/or upper extremity function for ADL's. Plan of Care: ADL Retraining, Functional Mobility, Group Exercise/Act as Ind, UE Funct Exercise/Act Treatment Duration: Feb 07, 2023 Frequency: At least 5 of 7 days/Wk (IRF) Estimated Hrs Per Day: 1.5 hours per day Agreement: Yes Rehab Potential: Good Time Start Time: 13:30 Stop Time: 14:00 DATE: Jan 22, 2023 Total Time Billed (hr/min): 90 Billed Treatment Time 1, FA 2 ISAURA MCDONALD OT Jan 22, 2023 14:08
--- NOTE | 2023-01-22 16:06 | Therapy Team Discharge Summary ---
Therapy Discharge Summary Discharge Recommendations Date of Discharge Physical Therapy Patient was admitted to ARU 01/16/23 s/p lumbar laminectomy and fusion. He is wearing a lumbar support at d/c and continues to verbalize LBP ~ 4-5/10 at D/C. Functionally, he is (I) with gait over 400' with a FWW. He is (I) with bed mobility and functional transfers using a FWW. He is able to ascend/descend 1 curb with a FWW (I) and 12 steps with rails (I). He is able to pick an object up from floor (I) using a webmethods consultant. His [facility] standing balance score is 4+/5 at D/C. He will have a FWW for home and receive home health services, transitioning to outpatient PT as able for continued back/core strengthening and treatment as needed for back pain. Roll Left to Right (QC): 6 Sit to Lying (QC): 6 Lying to Sitting/Side of Bed(Q: 6 Sit to Stand (QC): 6 Chair/Hao-qu-Tonru Xfer(QC): 6 Toilet Transfer (QC): 6 Car Transfer (QC): 6 Does the Patient Walk: Yes Mode of Locomotion: Walk Anticipated Mode of Locomotion: Walk Walk 10 feet (QC): 6 Walk 50 ft with 2 Turns(QC): 6 Walk 150 ft (QC): 6 Walking 10ft on uneven surface: 6 Distance: 400' Gait Assistive Device: FWW Does the Pt Use a Wheelchair: No Wheel 50 ft with 2 turns (QC): 9 Wheel 150 ft (QC): 9 Type of Wheelchair: N/A #of Steps: 12 1 Step (curb) (QC): 6 4 Steps (QC): 6 12 Steps (QC): 6 Walking Assistive Device: Walker Balance Sitting Static: Good Balance Sitting Dynamic: Good Balance-Standing Static: Good Picking up an Object (QC): 6 Occupational Therapy Decreased Activ Tolerance Eating (QC): 6 Oral Hygiene (QC): 6 (standing at sink) Shower/Bathe Self (QC): 5 (Set up to cover IV.) Upper Body Dressing (QC): 6 Lower Body Dressing (QC): 6 On/Off Footwear (QC): 6 Toileting Hygiene (QC): 6 PT Electronic Heat Seal Operator Goals Electronic Heat Seal Operator Goals PT Electronic Heat Seal Operator Goals Time Frame: Jan 30, 2023 Roll Left to Right (QC): 6 (Pt will be Mod I with functional mobility with the FWW. ) Sit to Lying (QC): 6 (Pt will be Mod I with functional mobility with the FWW. ) Lying-Sitting on Side/Bed(QC): 6 (Pt will be Mod I with functional mobility with the FWW. ) Sit to Stand (QC): 6 (Pt will be Mod I with functional mobility with the FWW. ) Chair/Uhe-gh-Fcdts Xfer(QC): 6 (Pt will be Mod I with functional mobility with the FWW. ) Toilet/Commode Transfer (QC): 6 (Pt will be Mod I with functional mobility with the FWW. ) Car Transfer (QC): 6 (Pt will be Mod I with functional mobility with the FWW. ) Does the Patient Walk: Yes Walk 10 feet (QC): 6 (Pt will be Mod I with functional mobility with the FWW. ) Walk 10ft-Uneven Surface(QC): 6 (Pt will be Mod I with functional mobility with the FWW. ) Walk 50ft with 2 Turns (QC): 6 (Pt will be Mod I with functional mobility with the FWW. ) Walk 150 ft (QC): 6 (Pt will be Mod I with functional mobility with the FWW. ) Wheel 50 feet with 2 turns (QC: 6 (Mod I with w/c mobility/will not need ) Type: Manual Wheel 150 feet: 6 (Mod I with w/c mobility/will not need ) Type: Manual 1 Step (curb) (QC): 6 (Pt will be Mod I with functional mobility with the FWW. ) 4 Steps (QC): 6 (Pt will be Mod I with functional mobility with the FWW. ) 12 Steps (QC): 9 (4 steps at home ) Picking up an Object (QC): 6 (Pt will be Mod I with functional mobility with the FWW. ) OT Detention Goals Detention Goals Time Frame: Feb 07, 2023 Acute change in mental status: 0 Inattention: 0 Disorganized thinkin Altered level of consciousness: 0 Eating (QC): 6 Oral Hygiene (QC): 6 Toileting Hygiene (QC): 6 Shower/Bathe Self (QC): 6 Upper Body Dressing (QC): 6 Lower Body Dressing (QC): 6 On/Off Footwear (QC): 6 Additional Goals: 1-Demonstrate ADL Tasks, 2-Verbalize Understanding, 3- ImproveStrength/Luke 1=Demonstrate adherence to instructed precautions during ADL tasks. 2=Patient will verbalize/demonstrate understanding of assistive devices/modifications for ADL. 3=Patient will improve strength/tolerance for activity to enable patient to perform ADL's. Aida Hampton PT Jan 22, 2023 16:06
[2023-01-22 20:05] VITALS: BP 113/65
[2023-01-23] MEDS: NAPROXEN 250 MG TABLET PO PRN (02:06)
[2023-01-23] MEDS: oxyCODONE IMMEDIATE RELEASE 5 MG TABLET PO PRN ×2 (02:06→07:33)
[2023-01-23] MEDS: CYCLOBENZAPRINE 10 MG TABLET PO PRN (03:53)
[2023-01-23] MEDS: BISACODYL 10 MG SUPPOSITORY PR PRN (05:26)
[2023-01-23] MEDS: ACETAMINOPHEN 325 MG TABLET PO PRN (05:26)
[2023-01-23] MEDS: CYANOCOBALAMIN 1,000 MCG TABLET PO SCH (07:23)
[2023-01-23] MEDS: PHENYTOIN EXT RELEASE 100 MG CAPSULE PO SCH (07:32)
[2023-01-23] MEDS ORDERED: CYCL10TA25 PO (07:32)
[2023-01-23] MEDS: DOCUSATE SODIUM 100 MG CAPSULE PO SCH (07:32)
[2023-01-23] MEDS: SENNA W/DOCUSATE TABLET PO SCH (07:32)
--- NOTE | 2023-01-23 07:33 | Discharge Summary ---
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 (2) S/P lumbar fusion Discharge Summary Discharge Physical Examination Allergies: Coded Allergies: No Known Drug Allergies (Unverified , 01/20/23) Vitals & I&Os Vital Signs Date Time Temp Pulse Resp B/P (MAP) Pulse Ox O2 Delivery O2 Flow Rate FiO2 01/23/23 08:20 Room Air 01/23/23 08:20 36.6 88 18 130/66 98 General Appearance: Alert, Oriented X3, Cooperative Respiratory: Clear to Auscultation Cardiovascular: Regular Rate Psych/Mental Status: Mental Status NL Hospital Course Was the Problem List Reviewed?: Yes Lengthy course after transferred from [facility] following extensive lumbar spine surgery and slow recovery. IV iron given for iron def anemia from acute blood loss. Home meds restarted. Patient was able to participate and gain recovery and ultimately return to baseline and he was sent home on . Pain was controlled at time of DC. He did not have any decompensation during course. Dr Cardenas updated on hgb and she will follow up. Labs (last 24 hrs) Laboratory Tests 01/17/23 05:04: White Blood Count 9.9, Red Blood Count 2.24L, Hemoglobin 7.4L, Hematocrit 22L, Mean Corpuscular Volume 98, Mean Corpuscular Hemoglobin 33, Mean Corpuscular Hemoglobin Concent 34, Red Cell Distribution Width 13.2, Platelet Count 77L, Mean Platelet Volume 13.4H, Immature Granulocyte % (Auto) 0, Neutrophils (%) (Auto) 48, Lymphocytes (%) (Auto) 45H, Monocytes (%) (Auto) 6, Eosinophils (%) (Auto) 1, Basophils (%) (Auto) 0, Neutrophils # (Auto) 4.7, Lymphocytes # (Auto) 4.5H, Monocytes # (Auto) 0.5, Eosinophils # (Auto) 0.1, Basophils # (Auto) 0.0, Immature Granulocyte # (Auto) 0.0, Neutrophils % (Manual) 46, Lymphocytes % (Manual) 51, Monocytes % (Manual) 2, Eosinophils % (Manual) 1, Basophils % (Manual) 0, Band Neutrophils 0, Percent Immature Platelet Fraction 7.2, Blood Morphology Comment NORMAL, Absolute Reticulocyte Count 30, Percent Reticulocyte Count 1.34, Sodium Level 138, Potassium Level 4.4, Chloride Level 108H, Carbon Dioxide Level 24, Anion Gap 6, Blood Urea Nitrogen 20H, Creatinine 0.99, Estimat Glomerular Filtration Rate 81, BUN/Creatinine Ratio 20, Glucose Level 142H, Calcium Level 8.0L, Corrected Calcium 8.9, Iron Level 37, Total Bilirubin 0.4, Aspartate Amino Transf (AST/SGOT) 30, Alanine Aminotransferase (ALT/SGPT) 13, Alkaline Phosphatase 58, Lactate Dehydrogenase 211, Total Protein 5.0L, Albumin 2.9L, Vitamin B12 Level 403, Thyroid Stimulating Hormone (TSH) 0.97 01/19/23 06:46: White Blood Count 9.6, Red Blood Count 2.61L, Hemoglobin 8.6L, Hematocrit 25L, Mean Corpuscular Volume 97, Mean Corpuscular Hemoglobin 33, Mean Corpuscular Hemoglobin Concent 34, Red Cell Distribution Width 13.0, Platelet Count 104L, Mean Platelet Volume 11.5, Immature Granulocyte % (Auto) 0, Neutrophils (%) (Auto) 35L, Lymphocytes (%) (Auto) 55H, Monocytes (%) (Auto) 7, Eosinophils (%) (Auto) 3, Basophils (%) (Auto) 0, Neutrophils # (Auto) 3.3, Lymphocytes # (Auto) 5.3H, Monocytes # (Auto) 0.7, Eosinophils # (Auto) 0.3, Basophils # (Auto) 0.0, Immature Granulocyte # (Auto) 0.0, Percent Immature Platelet Fraction 5.7, Sodium Level 139, Potassium Level 4.2, Chloride Level 106, Carbon Dioxide Level 24, Anion Gap 9, Blood Urea Nitrogen 14, Creatinine 0.90, Estimat Glomerular Filtration Rate 91, BUN/Creatinine Ratio 16, Glucose Level 120H, Calcium Level 8.5, Corrected Calcium 9.1, Total Bilirubin 0.5, Aspartate Amino Transf (AST/SGOT) 24, Alanine Aminotransferase (ALT/SGPT) 15, Alkaline Phosphatase 60, Total Protein 5.8L, Albumin 3.3 Pending Labs Laboratory Tests 01/17/23 05:04: White Blood Count 9.9, Red Blood Count 2.24, Hemoglobin 7.4, Hematocrit 22, Mean Corpuscular Volume 98, Mean Corpuscular Hemoglobin 33, Mean Corpuscular Hemoglobin Concent 34, Red Cell Distribution Width 13.2, Platelet Count 77, Mean Platelet Volume 13.4, Immature Granulocyte % (Auto) 0, Neutrophils (%) (Auto) 48, Lymphocytes (%) (Auto) 45, Monocytes (%) (Auto) 6, Eosinophils (%) (Auto) 1, Basophils (%) (Auto) 0, Neutrophils # (Auto) 4.7, Lymphocytes # (Auto) 4.5, Monocytes # (Auto) 0.5, Eosinophils # (Auto) 0.1, Basophils # (Auto) 0.0, Immature Granulocyte # (Auto) 0.0, Neutrophils % (Manual) 46, Lymphocytes % (Manual) 51, Monocytes % (Manual) 2, Eosinophils % (Manual) 1, Basophils % (Manual) 0, Band Neutrophils 0, Percent Immature Platelet Fraction 7.2, Blood Morphology Comment NORMAL, Absolute Reticulocyte Count 30, Percent Reticulocyte Count 1.34, Sodium Level 138, Potassium Level 4.4, Chloride Level 108, Carbon Dioxide Level 24, Anion Gap 6, Blood Urea Nitrogen 20, Creatinine 0.99, Estimat Glomerular Filtration Rate 81, BUN/Creatinine Ratio 20, Glucose Level 142, Calcium Level 8.0, Corrected Calcium 8.9, Iron Level 37, Total Bilirubin 0.4, Aspartate Amino Transf (AST/SGOT) 30, Alanine Aminotransferase (ALT/SGPT) 13, Alkaline Phosphatase 58, Lactate Dehydrogenase 211, Total Protein 5.0, Albumin 2.9, Vitamin B12 Level 403, Thyroid Stimulating Hormone (TSH) 0.97 01/19/23 06:46: White Blood Count 9.6, Red Blood Count 2.61, Hemoglobin 8.6, Hematocrit 25, Mean Corpuscular Volume 97, Mean Corpuscular Hemoglobin 33, Mean Corpuscular Hemoglobin Concent 34, Red Cell Distribution Width 13.0, Platelet Count 104, Mean Platelet Volume 11.5, Immature Granulocyte % (Auto) 0, Neutrophils (%) (Auto) 35, Lymphocytes (%) (Auto) 55, Monocytes (%) (Auto) 7, Eosinophils (%) (Auto) 3, Basophils (%) (Auto) 0, Neutrophils # (Auto) 3.3, Lymphocytes # (Auto) 5.3, Monocytes # (Auto) 0.7, Eosinophils # (Auto) 0.3, Basophils # (Auto) 0.0, Immature Granulocyte # (Auto) 0.0, Percent Immature Platelet Fraction 5.7, Sodium Level 139, Potassium Level 4.2, Chloride Level 106, Carbon Dioxide Level 24, Anion Gap 9, Blood Urea Nitrogen 14, Creatinine 0.90, Estimat Glomerular Filtration Rate 91, BUN/Creatinine Ratio 16, Glucose Level 120, Calcium Level 8.5, Corrected Calcium 9.1, Total Bilirubin 0.5, Aspartate Amino Transf (AST/SGOT) 24, Alanine Aminotransferase (ALT/SGPT) 15, Alkaline Phosphatase 60, Total Protein 5.8, Albumin 3.3 Discharge Home Medications: Active Scripts Active Cyclobenzaprine HCl 10 Mg Tablet 10 Mg PO TID PRN 14 Days Reported Phenytoin Sodium Extended 100 Mg Capsule 300 Mg PO DAILY TAKES 3 (100MG) CAPS Neurontin (Gabapentin) 300 Mg Capsule 300 Mg PO DAILY FILLED 08-30-2022 #90/90 DAY SUPPLY Bee Pollen 550 Mg Capsule 550 Mg PO DAILY Instructions to patient/family Please see electronic discharge instructions given to patient. 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
[2023-01-23 08:00] VITALS: BP 110/65
[2023-01-23 08:20] VITALS: BP 130/66
[2023-01-23] MEDS ORDERED: GABAPENTIN 300 MG CAPSULE PO SCH (09:00)
[2023-01-23] MEDS: IRON SUCROSE 200 MG/10 ML VIAL IV SCH (09:55)
--- NOTE | 2023-01-23 10:17 | Therapy Team Discharge Summary ---
Therapy Discharge Summary Discharge Recommendations Date of Discharge Physical Therapy Roll Left to Right (QC): 6 Sit to Lying (QC): 6 Lying to Sitting/Side of Bed(Q: 6 Sit to Stand (QC): 6 Chair/Pwt-zh-Aewxu Xfer(QC): 6 Toilet Transfer (QC): 6 Car Transfer (QC): 6 Does the Patient Walk: Yes Mode of Locomotion: Walk Anticipated Mode of Locomotion: Walk Walk 10 feet (QC): 6 Walk 50 ft with 2 Turns(QC): 6 Walk 150 ft (QC): 6 Walking 10ft on uneven surface: 6 Distance: 400' Gait Assistive Device: FWW Does the Pt Use a Wheelchair: No Wheel 50 ft with 2 turns (QC): 9 Wheel 150 ft (QC): 9 Type of Wheelchair: N/A #of Steps: 12 1 Step (curb) (QC): 6 4 Steps (QC): 6 12 Steps (QC): 6 Walking Assistive Device: Walker Balance Sitting Static: Good Balance Sitting Dynamic: Good Balance-Standing Static: Good Picking up an Object (QC): 6 Occupational Therapy Pt admitted to [facility] s/p L2-S1 Fusion. At [facility], pt was independent with ADLS. Upon initial evaluation, pt was independent with eating and oral care, required min A showering and toileting, SBA UE dressing, and max A LE dressing and footwear. OT tx focused on increasing BUE strength and activity tolerance, increasing safety and independence with ADLS, education on AE to maintain back precautions, and family education. Pt made good progress towards goals, attaining IND level with all goals except showering due to assistance required to cover his IV. Recommendations include: production sound mixer, sock aide, long handled shoe horn, tub transfer bench. Pt discharged home with spouse, d/c from OT. Decreased Activ Tolerance Eating (QC): 6 Oral Hygiene (QC): 6 (standing at sink) Shower/Bathe Self (QC): 5 (Set up to cover IV.) Upper Body Dressing (QC): 6 Lower Body Dressing (QC): 6 On/Off Footwear (QC): 6 Toileting Hygiene (QC): 6 PT Call Circuit Worker Goals Call Circuit Worker Goals PT Fpc Goals Time Frame: Jan 30, 2023 Roll Left to Right (QC): 6 (Pt will be Mod I with functional mobility with the FWW. ) Sit to Lying (QC): 6 (Pt will be Mod I with functional mobility with the FWW. ) Lying-Sitting on Side/Bed(QC): 6 (Pt will be Mod I with functional mobility with the FWW. ) Sit to Stand (QC): 6 (Pt will be Mod I with functional mobility with the FWW. ) Chair/Gdb-cb-Yjncc Xfer(QC): 6 (Pt will be Mod I with functional mobility with the FWW. ) Toilet/Commode Transfer (QC): 6 (Pt will be Mod I with functional mobility with the FWW. ) Car Transfer (QC): 6 (Pt will be Mod I with functional mobility with the FWW. ) Does the Patient Walk: Yes Walk 10 feet (QC): 6 (Pt will be Mod I with functional mobility with the FWW. ) Walk 10ft-Uneven Surface(QC): 6 (Pt will be Mod I with functional mobility with the FWW. ) Walk 50ft with 2 Turns (QC): 6 (Pt will be Mod I with functional mobility with the FWW. ) Walk 150 ft (QC): 6 (Pt will be Mod I with functional mobility with the FWW. ) Wheel 50 feet with 2 turns (QC: 6 (Mod I with w/c mobility/will not need ) Type: Manual Wheel 150 feet: 6 (Mod I with w/c mobility/will not need ) Type: Manual 1 Step (curb) (QC): 6 (Pt will be Mod I with functional mobility with the FWW. ) 4 Steps (QC): 6 (Pt will be Mod I with functional mobility with the FWW. ) 12 Steps (QC): 9 (4 steps at home ) Picking up an Object (QC): 6 (Pt will be Mod I with functional mobility with th e FWW. ) OT Fpc Goals Call Circuit Worker Goals Time Frame: Feb 07, 2023 Acute change in mental status: 0 Inattention: 0 Disorganized thinkin Altered level of consciousness: 0 Eating (QC): 6 (met) Oral Hygiene (QC): 6 (met) Toileting Hygiene (QC): 6 (met) Shower/Bathe Self (QC): 6 (not met) Upper Body Dressing (QC): 6 (met) Lower Body Dressing (QC): 6 (met) On/Off Footwear (QC): 6 (met) Additional Goals: 1-Demonstrate ADL Tasks, 2-Verbalize Understanding, 3- ImproveStrength/Luke 1=Demonstrate adherence to instructed precautions during ADL tasks. 2=Patient will verbalize/demonstrate understanding of assistive devices/modifications for ADL. 3=Patient will improve strength/tolerance for activity to enable patient to perform ADL's. ISAURA MCDONALD OT Jan 23, 2023 10:17
== END 2023-01-23 08:20 | disposition home or self-care (01) | DRG 560 ==
PROVIDERS: ADMIT Internal Medicine; ATTEND Internal Medicine
DX: Z47.89 Encounter for other orthopedic aftercare (principal); G95.9 Disease of spinal cord, unspecified; K56.7 Ileus, unspecified; D50.9 Iron deficiency anemia, unspecified; E53.8 Deficiency of other specified B group vitamins; M19.90 Unspecified osteoarthritis, unspecified site; K21.9 Gastro-esophageal reflux disease without esophagitis; G62.9 Polyneuropathy, unspecified; Z98.1 Arthrodesis status
CPT/HCPCS: 36415; 80053; 82607; 83540; 83615; 84443; 85007; 85025; 85027; 85045; 85055